=== PATIENT | female | born 1945 | race Caucasian/White ===

== ENCOUNTER 2017-07-26 10:20 | Outpatient (CLI) | payer MEDICARE, SELFPAY | END 2017-07-26 10:55 | disposition home or self-care (01) | PROVIDERS: Visit Provider Allergy & Immunology | DX: J45.909 Unspecified asthma, uncomplicated (principal) | CPT/HCPCS: 96372; J2357 ==

== ENCOUNTER 2017-08-09 09:50 | Outpatient (CLI) | payer MEDICARE, SELFPAY ==
[2017-08-09 10:27] VITALS: BMI 22.1
[2017-08-09 10:33] VITALS: BP 111/71; PULSE 65; RESP 18; TEMP 36.3; O2SAT 97
== END 2017-08-09 10:45 | disposition home or self-care (01) ==
LOC: INF 12:04
PROVIDERS: Family Provider Family Medicine; PCP Family Medicine; Visit Provider Allergy & Immunology
DX: J45.909 Unspecified asthma, uncomplicated (principal)
CPT/HCPCS: 96372; J2357

== ENCOUNTER 2017-08-23 09:50 | Outpatient (CLI) | payer MEDICARE, SELFPAY ==
[2017-08-23 10:37] VITALS: BP 108/62; PULSE 63; RESP 20; TEMP 36.5; O2SAT 94
== END 2017-08-23 10:46 | disposition home or self-care (01) ==
LOC: INF 10:25
PROVIDERS: Family Provider Family Medicine; PCP Family Medicine; Visit Provider Allergy & Immunology
DX: J45.909 Unspecified asthma, uncomplicated (principal)
CPT/HCPCS: 96372; J2357

== ENCOUNTER 2017-09-06 11:20 | Outpatient (CLI) | payer MEDICARE, SELFPAY ==
[2017-09-06 11:40] VITALS: BP 140/73; PULSE 67; RESP 18; TEMP 36.6; O2SAT 95
== END 2017-09-06 11:55 | disposition home or self-care (01) ==
LOC: INF 11:39
PROVIDERS: Family Provider Family Medicine; PCP Family Medicine; Visit Provider Allergy & Immunology
DX: J45.909 Unspecified asthma, uncomplicated (principal)
CPT/HCPCS: 96372; J2357

== ENCOUNTER 2017-09-20 09:56 | Outpatient (CLI) | payer MEDICARE, SELFPAY ==
[2017-09-20 10:10] VITALS: BMI 22.3
[2017-09-20 10:20] VITALS: BP 129/65; PULSE 58; RESP 18; TEMP 36.7; O2SAT 93
== END 2017-09-20 10:20 | disposition home or self-care (01) ==
LOC: INF 09:56
PROVIDERS: Family Provider Family Medicine; PCP Family Medicine; Visit Provider Allergy & Immunology
DX: J45.909 Unspecified asthma, uncomplicated (principal)
CPT/HCPCS: 96372; J2357

== ENCOUNTER 2017-10-04 10:18 | Outpatient (CLI) | payer MEDICARE, SELFPAY ==
[2017-10-04 10:33] VITALS: BP 129/62; PULSE 62; RESP 18; TEMP 36.4; O2SAT 96
== END 2017-10-04 10:39 | disposition home or self-care (01) ==
LOC: INF 10:19
PROVIDERS: Family Provider Family Medicine; PCP Family Medicine; Visit Provider Allergy & Immunology
DX: J45.909 Unspecified asthma, uncomplicated (principal)
CPT/HCPCS: 96372; J2357

== ENCOUNTER 2017-10-18 09:54 | Outpatient (CLI) | payer MEDICARE, SELFPAY ==
[2017-10-18 10:20] VITALS: BP 135/60; PULSE 69; RESP 18; TEMP 36.5; O2SAT 95
== END 2017-10-18 10:33 | disposition home or self-care (01) ==
LOC: INF 09:54
PROVIDERS: Family Provider Family Medicine; PCP Family Medicine; Visit Provider Allergy & Immunology
DX: J45.909 Unspecified asthma, uncomplicated (principal)
CPT/HCPCS: 96372; J2357

== ENCOUNTER 2017-11-01 10:00 | Outpatient (CLI) | payer MEDICARE, SELFPAY ==
[2017-11-01 10:25] VITALS: BP 112/58; PULSE 84; RESP 18
== END 2017-11-01 10:45 | disposition home or self-care (01) ==
LOC: INF 10:08
PROVIDERS: Family Provider Family Medicine; PCP Family Medicine; Visit Provider Allergy & Immunology
DX: J45.909 Unspecified asthma, uncomplicated (principal)
CPT/HCPCS: 96372; J2357

== ENCOUNTER 2017-11-15 10:00 | Outpatient (CLI) | payer MEDICARE, SELFPAY ==
[2017-11-15 10:25] VITALS: BP 112/60; PULSE 65; RESP 18; TEMP 36.6; O2SAT 94
== END 2017-11-15 10:50 | disposition home or self-care (01) ==
LOC: INF 10:05
PROVIDERS: Family Provider Family Medicine; PCP Family Medicine; Visit Provider Internal Medicine
DX: J45.909 Unspecified asthma, uncomplicated (principal)
CPT/HCPCS: 96372; J2357

== ENCOUNTER 2017-11-29 10:02 | Outpatient (CLI) | payer MEDICARE, SELFPAY ==
[2017-11-29 10:30] VITALS: BP 118/63; PULSE 63; RESP 18; O2SAT 94
== END 2017-11-29 10:45 | disposition home or self-care (01) ==
LOC: INF 10:02
PROVIDERS: Family Provider Family Medicine; PCP Family Medicine; Visit Provider Allergy & Immunology
DX: J45.909 Unspecified asthma, uncomplicated (principal)
CPT/HCPCS: 96372; J2357

== ENCOUNTER 2017-12-13 10:00 | Outpatient (CLI) | payer MEDICARE, SELFPAY ==
[2017-12-13 10:35] VITALS: BP 124/78; PULSE 67; RESP 18; TEMP 36.8
== END 2017-12-13 10:35 | disposition home or self-care (01) ==
LOC: INF 10:07
PROVIDERS: Family Provider Family Medicine; PCP Family Medicine; Visit Provider Allergy & Immunology
DX: J45.909 Unspecified asthma, uncomplicated (principal)
CPT/HCPCS: 96372; J2357

== ENCOUNTER 2017-12-27 10:00 | Outpatient (CLI) | payer MEDICARE, SELFPAY ==
[2017-12-27 10:35] VITALS: BP 116/68; PULSE 68; RESP 18; TEMP 36.6; O2SAT 95
== END 2017-12-27 10:50 | disposition home or self-care (01) ==
LOC: INF 10:44
PROVIDERS: Family Provider Family Medicine; PCP Family Medicine; Visit Provider Allergy & Immunology
DX: J45.909 Unspecified asthma, uncomplicated (principal)
CPT/HCPCS: 96372; J2357

== ENCOUNTER 2018-01-10 10:10 | Outpatient (CLI) | payer MEDICARE, SELFPAY ==
[2018-01-10 10:35] VITALS: BP 136/81; PULSE 62; RESP 18; TEMP 36.6; O2SAT 97
== END 2018-01-10 10:50 | disposition home or self-care (01) ==
LOC: INF 10:34
PROVIDERS: Family Provider Family Medicine; PCP Family Medicine; Visit Provider Allergy & Immunology
DX: J45.909 Unspecified asthma, uncomplicated (principal)
CPT/HCPCS: 96372; J2357

== ENCOUNTER 2018-01-24 10:04 | Outpatient (CLI) | payer MEDICARE, SELFPAY ==
[2018-01-24 10:14] VITALS: BP 122/63; PULSE 65; RESP 18; TEMP 36.8; O2SAT 97
== END 2018-01-24 10:28 | disposition home or self-care (01) ==
LOC: INF 10:04
PROVIDERS: Family Provider Family Medicine; PCP Family Medicine; Visit Provider Allergy & Immunology
DX: J45.909 Unspecified asthma, uncomplicated (principal)
CPT/HCPCS: 96372; J2357

== ENCOUNTER 2018-02-07 10:00 | Outpatient (CLI) | payer MEDICARE, SELFPAY ==
[2018-02-07 10:17] VITALS: BP 109/64; PULSE 69; RESP 18; TEMP 36.6; O2SAT 96
== END 2018-02-07 10:30 | disposition home or self-care (01) ==
LOC: INF 10:08
PROVIDERS: Family Provider Family Medicine; PCP Family Medicine; Visit Provider Allergy & Immunology
DX: J45.909 Unspecified asthma, uncomplicated (principal)
CPT/HCPCS: 96372; J2357

== ENCOUNTER 2018-02-21 09:59 | Outpatient (CLI) | payer MEDICARE, SELFPAY ==
[2018-02-21 10:14] VITALS: BP 124/64; PULSE 62; RESP 18; TEMP 36.4; O2SAT 93
== END 2018-02-21 10:32 | disposition home or self-care (01) ==
LOC: INF 09:59
PROVIDERS: Family Provider Family Medicine; PCP Family Medicine; Visit Provider Allergy & Immunology
DX: J45.909 Unspecified asthma, uncomplicated (principal)
CPT/HCPCS: 96372; J2357

== ENCOUNTER 2018-03-07 09:50 | Outpatient (CLI) | payer MEDICARE, SELFPAY ==
[2018-03-07 11:05] VITALS: BP 114/62; PULSE 65; RESP 18; TEMP 36.4; O2SAT 94
== END 2018-03-07 11:30 | disposition home or self-care (01) ==
LOC: INF 09:50
PROVIDERS: Family Provider Family Medicine; PCP Family Medicine; Visit Provider Allergy & Immunology
DX: J45.909 Unspecified asthma, uncomplicated (principal)
CPT/HCPCS: 96372; J2357

== ENCOUNTER 2018-03-21 10:13 | Outpatient (CLI) | payer MEDICARE, SELFPAY ==
[2018-03-21 10:50] VITALS: BP 115/65; PULSE 66; RESP 18; TEMP 36.8; O2SAT 98
== END 2018-03-21 11:00 | disposition home or self-care (01) ==
LOC: INF 10:13
PROVIDERS: Family Provider Family Medicine; PCP Family Medicine; Visit Provider Allergy & Immunology
DX: J45.909 Unspecified asthma, uncomplicated (principal)
CPT/HCPCS: 96372; J2357

== ENCOUNTER 2018-04-04 09:50 | Outpatient (CLI) | payer MEDICARE, SELFPAY ==
[2018-04-04 10:16] VITALS: BP 118/64; PULSE 60; RESP 18; TEMP 36.8; O2SAT 95
== END 2018-04-04 10:41 | disposition home or self-care (01) ==
LOC: INF 09:53
PROVIDERS: Family Provider Family Medicine; PCP Family Medicine; Visit Provider Allergy & Immunology
DX: J45.909 Unspecified asthma, uncomplicated (principal)
CPT/HCPCS: 96372; J2357

== ENCOUNTER 2018-04-18 10:00 | Outpatient (CLI) | payer MEDICARE, SELFPAY ==
[2018-04-18 10:28] VITALS: BP 128/76; PULSE 60; RESP 18; TEMP 36.3; O2SAT 96
--- NOTE | 2018-04-18 10:36 | PC.NURSE ---
04/18/18 1028 xolair 300mg SQ given, 150mg L arm, 150mg R arm. Pt veronique very well.
[2018-04-18 10:43] VITALS: BP 125/69; PULSE 64; RESP 18; TEMP 36.4; O2SAT 97
== END 2018-04-18 10:45 | disposition home or self-care (01) ==
LOC: INF 10:00
PROVIDERS: Family Provider Family Medicine; PCP Family Medicine; Visit Provider Allergy & Immunology
DX: J45.909 Unspecified asthma, uncomplicated (principal)
CPT/HCPCS: 96372; J2357

== ENCOUNTER 2018-05-02 09:15 | Outpatient (CLI) | payer MEDICARE, SELFPAY ==
[2018-05-02 09:52] VITALS: BP 119/61; PULSE 60; RESP 18; TEMP 36.9; O2SAT 94
== END 2018-05-02 09:52 | disposition home or self-care (01) ==
LOC: INF 09:37
PROVIDERS: Family Provider Family Medicine; PCP Family Medicine; Visit Provider Allergy & Immunology
DX: J45.909 Unspecified asthma, uncomplicated (principal)
CPT/HCPCS: 96372; J2357

== ENCOUNTER 2018-05-16 10:06 | Outpatient (CLI) | payer MEDICARE, SELFPAY ==
[2018-05-16 10:10] VITALS: BP 122/67; PULSE 84; RESP 18; TEMP 36.6; O2SAT 97
[2018-05-29 14:45] VITALS: BMI 22.3
== END 2018-05-16 10:35 | disposition home or self-care (01) ==
LOC: INF 10:06
PROVIDERS: Family Provider Family Medicine; PCP Family Medicine; Visit Provider Allergy & Immunology
DX: J45.909 Unspecified asthma, uncomplicated (principal)
CPT/HCPCS: 96372; J2357

== ENCOUNTER 2018-05-30 10:05 | Outpatient (CLI) | payer MEDICARE, SELFPAY ==
[2018-05-30 10:45] VITALS: BP 125/63; PULSE 62; RESP 18; O2SAT 95
== END 2018-05-30 11:05 | disposition home or self-care (01) ==
LOC: INF 10:11
PROVIDERS: Visit Provider Allergy & Immunology
DX: J45.909 Unspecified asthma, uncomplicated (principal)
CPT/HCPCS: 96372; J2357

== ENCOUNTER 2018-06-13 10:18 | Outpatient (CLI) | payer MEDICARE, SELFPAY ==
[2018-06-13 10:31] VITALS: BP 129/68; PULSE 69; RESP 18; TEMP 36.7; O2SAT 91
== END 2018-06-13 10:31 | disposition home or self-care (01) ==
LOC: INF 10:18
PROVIDERS: Visit Provider Allergy & Immunology
DX: J45.909 Unspecified asthma, uncomplicated (principal)
CPT/HCPCS: 96372; J2357

== ENCOUNTER 2018-06-27 10:15 | Outpatient (CLI) | payer MEDICARE, SELFPAY ==
[2018-06-27 10:25] VITALS: BP 130/71; PULSE 62; RESP 18; TEMP 36.6; O2SAT 94
--- NOTE | 2018-06-27 11:54 | PC.NURSE ---
06/27/18 1025 Xolair 300mg SQ given as ordered, 150mg L arm, 150mg R arm. Pt veronique well with no problems noted
== END 2018-06-27 10:35 | disposition home or self-care (01) ==
LOC: INF 10:15
PROVIDERS: Visit Provider Allergy & Immunology
DX: J45.909 Unspecified asthma, uncomplicated (principal)
CPT/HCPCS: 96372; J2357

== ENCOUNTER 2018-07-11 10:15 | Outpatient (CLI) | payer MEDICARE, SELFPAY ==
[2018-07-11 10:40] VITALS: BP 119/63; PULSE 63; RESP 18; O2SAT 92
== END 2018-07-11 10:55 | disposition home or self-care (01) ==
LOC: INF 10:21
PROVIDERS: Visit Provider Allergy & Immunology
DX: J45.909 Unspecified asthma, uncomplicated (principal)
CPT/HCPCS: 96372; J2357

== ENCOUNTER 2018-07-25 09:40 | Outpatient (CLI) | payer MEDICARE, SELFPAY ==
[2018-07-25 10:05] VITALS: BP 126/73; PULSE 62; RESP 18; O2SAT 93
== END 2018-07-25 10:25 | disposition home or self-care (01) ==
LOC: INF 09:46
PROVIDERS: Visit Provider Allergy & Immunology
DX: J45.909 Unspecified asthma, uncomplicated (principal)
CPT/HCPCS: 96372; J2357

== ENCOUNTER 2018-08-08 09:47 | Outpatient (CLI) | payer MEDICARE, SELFPAY ==
[2018-08-08 10:12] VITALS: BP 120/66; PULSE 60; RESP 20; TEMP 36.7; O2SAT 97
== END 2018-08-08 10:30 | disposition home or self-care (01) ==
LOC: INF 09:47
PROVIDERS: Visit Provider Allergy & Immunology
DX: J45.909 Unspecified asthma, uncomplicated (principal)
CPT/HCPCS: 96372; J2357

== ENCOUNTER 2018-08-22 10:13 | Outpatient (CLI) | payer MEDICARE, SELFPAY ==
[2018-08-22 10:29] VITALS: BP 113/71; PULSE 61; RESP 18; TEMP 36.4; O2SAT 98
== END 2018-08-22 10:46 | disposition home or self-care (01) ==
LOC: INF 10:13
PROVIDERS: Visit Provider Allergy & Immunology
DX: J45.909 Unspecified asthma, uncomplicated (principal)
CPT/HCPCS: 96372; J2357

== ENCOUNTER 2018-09-04 10:32 | Outpatient (CLI) | payer MEDICARE, SELFPAY ==
[2018-09-04 10:46] VITALS: BP 119/60; PULSE 68; RESP 20; TEMP 36.6; O2SAT 98
== END 2018-09-04 10:55 | disposition home or self-care (01) ==
LOC: INF 10:32
PROVIDERS: Visit Provider Allergy & Immunology
DX: J45.909 Unspecified asthma, uncomplicated (principal)
CPT/HCPCS: 96372; J2357

== ENCOUNTER 2018-09-19 09:45 | Outpatient (CLI) | payer MEDICARE, SELFPAY ==
[2018-09-19 10:20] VITALS: BP 136/70; PULSE 72; RESP 18; TEMP 36.6; O2SAT 94
== END 2018-09-19 10:24 | disposition home or self-care (01) ==
LOC: INF 09:45
PROVIDERS: Visit Provider Allergy & Immunology
DX: J45.909 Unspecified asthma, uncomplicated (principal)
CPT/HCPCS: 96372; J2357

== ENCOUNTER 2018-10-02 10:10 | Outpatient (CLI) | payer MEDICARE, SELFPAY ==
[2018-10-02 10:32] VITALS: BP 122/70; PULSE 68; RESP 18; TEMP 36.3; O2SAT 96
== END 2018-10-02 10:50 | disposition home or self-care (01) ==
LOC: INF 10:10
PROVIDERS: Visit Provider Allergy & Immunology
DX: J45.909 Unspecified asthma, uncomplicated (principal)
CPT/HCPCS: 96372; J2357

== ENCOUNTER 2018-10-17 09:52 | Outpatient (CLI) | payer MEDICARE, SELFPAY ==
[2018-10-17 09:45] VITALS: BP 125/62; PULSE 57; RESP 18; TEMP 36.3; O2SAT 92
[2018-10-17 10:10] VITALS: BP 125/62; PULSE 57; RESP 18; TEMP 36.3; O2SAT 92
== END 2018-10-17 10:10 | disposition home or self-care (01) ==
LOC: INF 09:52
PROVIDERS: Visit Provider Allergy & Immunology
DX: J45.909 Unspecified asthma, uncomplicated (principal)
CPT/HCPCS: 96372; J2357

== ENCOUNTER 2018-10-30 10:07 | Outpatient (CLI) | payer MEDICARE, SELFPAY ==
[2018-10-30 10:26] VITALS: BP 137/72; PULSE 61; RESP 18; TEMP 36.6; O2SAT 95
== END 2018-10-30 10:35 | disposition home or self-care (01) ==
LOC: INF 10:07
PROVIDERS: Visit Provider Allergy & Immunology
DX: J45.909 Unspecified asthma, uncomplicated (principal)
CPT/HCPCS: 96372; J2357

== ENCOUNTER 2018-11-14 09:36 | Outpatient (CLI) | payer MEDICARE, SELFPAY ==
[2018-11-14 10:01] VITALS: BP 131/84; PULSE 65; RESP 18; TEMP 36.6; O2SAT 96
== END 2018-11-14 10:04 | disposition home or self-care (01) ==
LOC: INF 09:37
PROVIDERS: Visit Provider Allergy & Immunology
DX: J45.909 Unspecified asthma, uncomplicated (principal)
CPT/HCPCS: 96372; J2357

== ENCOUNTER 2018-11-27 09:50 | Outpatient (CLI) | payer MEDICARE, SELFPAY ==
[2018-11-27 10:13] VITALS: BP 129/68; PULSE 74; RESP 18; O2SAT 100
== END 2018-11-27 10:25 | disposition home or self-care (01) ==
LOC: INF 09:55
PROVIDERS: Visit Provider Allergy & Immunology
DX: J45.909 Unspecified asthma, uncomplicated (principal)
CPT/HCPCS: 96372; J2357

== ENCOUNTER 2018-12-11 10:00 | Outpatient (CLI) | payer MEDICARE, SELFPAY ==
[2018-12-11 10:20] VITALS: BP 133/68; PULSE 70; RESP 18; O2SAT 93
== END 2018-12-11 10:40 | disposition home or self-care (01) ==
LOC: INF 10:06
PROVIDERS: Visit Provider Allergy & Immunology
DX: J45.909 Unspecified asthma, uncomplicated (principal)
CPT/HCPCS: 96372; J2357

== ENCOUNTER 2018-12-26 09:59 | Outpatient (CLI) | payer MEDICARE, SELFPAY ==
[2018-12-26 10:18] VITALS: BP 113/56; PULSE 63; RESP 18; TEMP 36.6; O2SAT 95
== END 2018-12-26 10:40 | disposition home or self-care (01) ==
LOC: INF 09:59
PROVIDERS: Visit Provider Allergy & Immunology
DX: J45.909 Unspecified asthma, uncomplicated (principal)
CPT/HCPCS: 96372; J2357

== ENCOUNTER 2019-01-08 09:55 | Outpatient (CLI) | payer MEDICARE, SELFPAY ==
[2019-01-08 10:15] VITALS: BP 139/69; PULSE 66; RESP 18
== END 2019-01-08 10:30 | disposition home or self-care (01) ==
LOC: INF 09:55
PROVIDERS: Visit Provider Allergy & Immunology
DX: J45.909 Unspecified asthma, uncomplicated (principal)
CPT/HCPCS: 96372; J2357

== ENCOUNTER 2019-01-22 09:41 | Outpatient (CLI) | payer MEDICARE, SELFPAY ==
[2019-01-22 09:59] VITALS: BP 128/81; PULSE 64; RESP 18; TEMP 36.6; O2SAT 95
== END 2019-01-22 10:20 | disposition home or self-care (01) ==
LOC: INF 09:41
PROVIDERS: Visit Provider Allergy & Immunology
DX: J45.909 Unspecified asthma, uncomplicated (principal)
CPT/HCPCS: 96372; J2357

== ENCOUNTER 2019-02-06 09:50 | Outpatient (CLI) | payer MEDICARE, SELFPAY ==
[2019-02-06 10:30] VITALS: BP 136/68; PULSE 64; RESP 16; TEMP 37; O2SAT 92
== END 2019-02-06 10:38 | disposition home or self-care (01) ==
LOC: INF 09:50
PROVIDERS: Visit Provider Allergy & Immunology
DX: J45.909 Unspecified asthma, uncomplicated (principal)
CPT/HCPCS: 96372; J2357

== ENCOUNTER 2019-02-19 09:55 | Outpatient (CLI) | payer MEDICARE, SELFPAY ==
[2019-02-19 10:15] VITALS: BP 135/76; PULSE 61; RESP 18; O2SAT 95
== END 2019-02-19 10:30 | disposition home or self-care (01) ==
LOC: INF 10:02
PROVIDERS: Visit Provider Allergy & Immunology
DX: J45.909 Unspecified asthma, uncomplicated (principal)
CPT/HCPCS: 96372; J2357

== ENCOUNTER → 2019-03-04 08:01 | Outpatient (CLI) | payer MEDICARE, SELFPAY ==
--- NOTE | 2019-03-04 08:05 | MM_ITS ---
MM Dig screening mamm BI w/CAD ORDERING PHYSICIAN : Maty Gross APRN PATIENT AGE: 73 years GENDER: Female COMPARISON: May 2016, April 2014 bilateral mammogram studies. Left mammogram January 2015, INDICATION: . .Routine screening mammogram. 73-year-old. No hormones. No new complaints. Previous bilateral breast reduction. Family history..Patient's daughter with breast cancer. TECHNIQUE: Standard CC and MLO images were obtained. R2 CAD reviewed. FINDINGS: Lower density breast with moderate diffuse fatty replacement. Minimal residual fibroglandular elements.. . No new areas of significant concern.. No dominant mass nor suspicious clustered microcalcifications. Period A few scattered benign punctate calcifications are actually less evident bilaterally. . Minimal nodularity in the left retroareolar region has remained stable.. Other appears to be a percutaneous biopsy clip at the medial right retroareolar region. No additional findings here Bilateral follow-up in one year adequate IMPRESSION: ...... Stable bilateral mammogram. No new areas of significant concern. Bilateral follow-up in one year recommended. BI-RADS Category: 2 Benign Finding(s) RECOMMENDED FOLLOW-UP: 1YR 1 YEAR FOLLOW-UP (A letter has been sent to the patient regarding results of the study.)
--- NOTE | 2019-03-04 08:05 | XR_ITS ---
XR DEXA axial skeleton HISTORY: ITS.REASON: OSTEOPENIA ORDERING PHYSICIAN: Maty Gross APRN PATIENT AGE: 73 years COMPARISON: None FINDINGS: The BMD measured at the AP spine L1-L4 is 0.830 g/cm squared with a T score of -2.9. This is considered Osteoporotic according to the World Health Organization criteria. Fracture risk is High. Treatment is advised. IMPRESSION: Osteoporosis with high fracture risk. Treatment is advised. Suggest follow-up exam February 2020
== END ==
PROVIDERS: PCP Family Medicine; Visit Provider Nurse Practitioner Family
DX: Z12.31 Encounter for screening mammogram for malignant neoplasm of breast (principal); M85.89 Other specified disorders of bone density and structure, multiple sites
CPT/HCPCS: 77067; 77080

== ENCOUNTER 2019-03-04 09:21 | Outpatient (CLI) | payer MEDICARE, SELFPAY ==
[2019-03-04 09:40] VITALS: BP 131/70; PULSE 60; RESP 18
== END 2019-03-04 09:45 | disposition home or self-care (01) ==
LOC: INF 09:21
PROVIDERS: Visit Provider Allergy & Immunology
DX: J45.909 Unspecified asthma, uncomplicated (principal); Z12.31 Encounter for screening mammogram for malignant neoplasm of breast; M81.0 Age-related osteoporosis without current pathological fracture
CPT/HCPCS: 77067; 77080; 96372; J2357

== ENCOUNTER 2019-03-19 09:53 | Outpatient (CLI) | payer MEDICARE, SELFPAY ==
[2019-03-19 10:15] VITALS: BP 131/68; PULSE 71; RESP 18; O2SAT 94
== END 2019-03-19 10:18 | disposition home or self-care (01) ==
LOC: INF 09:53
PROVIDERS: PCP Family Medicine; Visit Provider Allergy & Immunology
DX: J45.909 Unspecified asthma, uncomplicated (principal)
CPT/HCPCS: 96372; J2357

== ENCOUNTER 2019-04-02 09:50 | Outpatient (CLI) | payer MEDICARE, SELFPAY ==
[2019-04-02 12:13] VITALS: BP 109/65; PULSE 68; RESP 18; O2SAT 95
== END 2019-04-02 10:30 | disposition home or self-care (01) ==
LOC: INF 09:55
PROVIDERS: Visit Provider Allergy & Immunology
DX: J45.909 Unspecified asthma, uncomplicated (principal)
CPT/HCPCS: 96372; J2357

== ENCOUNTER 2019-04-17 09:41 | Outpatient (CLI) | payer MEDICARE, SELFPAY ==
[2019-04-17 10:09] VITALS: BP 111/53; PULSE 70; RESP 20; TEMP 36.6; O2SAT 96
== END 2019-04-17 10:25 | disposition home or self-care (01) ==
LOC: INF 09:41
PROVIDERS: Visit Provider Allergy & Immunology
DX: J45.909 Unspecified asthma, uncomplicated (principal)
CPT/HCPCS: 96372; J2357

== ENCOUNTER 2019-05-01 09:52 | Outpatient (CLI) | payer MEDICARE, SELFPAY ==
[2019-05-01 10:15] VITALS: BP 112/64; PULSE 67; RESP 18
== END 2019-05-01 10:30 | disposition home or self-care (01) ==
LOC: INF 10:04
PROVIDERS: Visit Provider Allergy & Immunology
DX: J45.909 Unspecified asthma, uncomplicated (principal)
CPT/HCPCS: 96372; J2357

== ENCOUNTER 2019-05-15 10:00 | Outpatient (CLI) | payer MEDICARE, SELFPAY ==
[2019-05-15 10:32] VITALS: BP 129/64; PULSE 70; RESP 20; TEMP 36.6; O2SAT 97
== END 2019-05-15 10:50 | disposition home or self-care (01) ==
LOC: INF 10:11
PROVIDERS: Visit Provider Allergy & Immunology
DX: J45.909 Unspecified asthma, uncomplicated (principal)
CPT/HCPCS: 96372; J2357

== ENCOUNTER 2019-05-29 10:04 | Outpatient (CLI) | payer MEDICARE, SELFPAY ==
[2019-05-29 10:20] VITALS: BP 111/62; PULSE 67; RESP 18; O2SAT 94
== END 2019-05-29 10:35 | disposition home or self-care (01) ==
LOC: INF 10:06
PROVIDERS: Visit Provider Allergy & Immunology
DX: J45.909 Unspecified asthma, uncomplicated (principal)
CPT/HCPCS: 96372; J2357

== ENCOUNTER 2019-06-12 10:00 | Outpatient (CLI) | payer MEDICARE, SELFPAY ==
[2019-06-12 10:00] VITALS: BP 118/56; PULSE 65; RESP 20; TEMP 36.9; O2SAT 95
== END 2019-06-12 10:30 | disposition home or self-care (01) ==
LOC: INF 10:00
PROVIDERS: Visit Provider Nurse Practitioner
DX: J45.909 Unspecified asthma, uncomplicated (principal)
CPT/HCPCS: 96372; J2357

== ENCOUNTER 2019-06-25 10:13 | Outpatient (CLI) | payer MEDICARE, SELFPAY ==
[2019-06-25 10:22] VITALS: BP 122/64; PULSE 65; RESP 18; TEMP 37; O2SAT 96
== END 2019-06-25 10:45 | disposition home or self-care (01) ==
LOC: INF 10:13
PROVIDERS: Visit Provider Nurse Practitioner
DX: M81.0 Age-related osteoporosis without current pathological fracture (principal)
CPT/HCPCS: 96372; J2357

== ENCOUNTER 2019-07-10 10:10 | Outpatient (CLI) | payer MEDICARE, SELFPAY ==
[2019-07-10 10:40] VITALS: BP 134/66; PULSE 62; RESP 16; O2SAT 96
== END 2019-07-10 10:55 | disposition home or self-care (01) ==
LOC: INF 10:29
PROVIDERS: Visit Provider Nurse Practitioner
DX: J45.909 Unspecified asthma, uncomplicated (principal)
CPT/HCPCS: 96372; J2357

== ENCOUNTER 2019-07-25 09:52 | Outpatient (CLI) | payer MEDICARE, SELFPAY ==
[2019-07-25 10:13] VITALS: BP 152/61; PULSE 67; RESP 18
== END 2019-07-25 10:15 | disposition home or self-care (01) ==
LOC: INF 09:52
PROVIDERS: Visit Provider Nurse Practitioner
DX: J45.909 Unspecified asthma, uncomplicated (principal)
CPT/HCPCS: 96372; J2357

== ENCOUNTER 2019-07-26 21:25 | Inpatient (IN) ==
--- NOTE | 2019-07-26 21:33 | Emergency Department Note ---
ED Disposition Clinical Impression: Upper gastrointestinal bleed, Pleural effusion, left, Hemorrhagic shock Hypothermia Qualifiers: Encounter type: initial encounter Qualified Code(s): T68.XXXA - Hypothermia, initial encounter Disposition: Admitted As Inpatient Condition on Discharge: Critical - Critical Care Critical Care Time: Yes Attestation: On , the high probability of a clinically significant, sudden or life threatening deterioration of the following system(s) required my full and direct attention, intervention and personal management. The time I documented below is in addition to time spent performing reported procedures but includes the following listed in this critical care notation. Total Critical Care Time: 45 Vital system(s) involved:: Shock (Hemorrhage) My critical care processes included: Assessment & monitoring of V/S, Initial and Re-exams, Data Review/Interpretation, Coordinating Care, Medication Orders and management, Documentation Medical Decision Making - Alex Inquiry Pt receiving controlled substance: No Vital Signs: 07/26/19 21:38 07/26/19 21:43 07/26/19 21:57 Temperature 95.0 F L Temperature Source Rectal Pulse Rate [Right] 94 H 86 87 Respiratory Rate 18 18 16 Blood Pressure [Right Arm] 66/33 L 81/62 L 88/44 L Blood Pressure Mean [Right Arm] 44 68 58 Blood Pressure Source [Right Arm] Manual Cuff/ Auscultation Blood Pressure Position [Right Arm] Supine 02 Sat by Pulse Oximetry 76 L 88 L 88 L Oxygen Delivery Method Room Air Nasal Cannula Nasal Cannula Oxygen Flow Rate (LPM) 2 2 07/26/19 22:18 07/26/19 23:22 Temperature Temperature Source Pulse Rate [Right] 85 92 H Respiratory Rate 16 Blood Pressure [Right Arm] 83/44 L 73/52 L Blood Pressure Mean [Right Arm] 57 59 Blood Pressure Source [Right Arm] Automatic Cuff Blood Pressure Position [Right Arm] Sitting 02 Sat by Pulse Oximetry 100 100 Oxygen Delivery Method Nasal Cannula Non-Rebreather Oxygen Flow Rate (LPM) 2 10 - Lab Data Lab Results 07/26/19 21:30: WBC 15.0 H, RBC 2.70 L, Hgb 7.7 L*, Hct 26.0 L, MCV 96.3, MCH 28.6, MCHC 29.7 L, RDW 15.3, Plt Count 337, MPV 8.4, Neut % (Auto) 81.4 H, Lymph % (Auto) 12.0, [place] % (Auto) 6.4, Eos % (Auto) 0.1, Baso % (Auto) 0.2, Neut # (Auto) 12.2 H, Lymph # (Auto) 1.8, [place] # (Auto) 1.0, Eos # (Auto) 0.0, Baso # (Auto) 0.0, Total Counted 100, Neutrophils % (Manual) 85 H, Lymphocytes % (Manual) 15, Platelet Estimate Normal, Hypochromasia 1+ 07/26/19 21:30: PT 11.1, INR 1.07, APTT 21.1 L 07/26/19 21:30: Sodium 147 H, Potassium 4.2, Chloride 114 H, Carbon Dioxide 20 L , Anion Gap 17.2 H, BUN 74 H, Creatinine 1.16 H, Estimated Creat Clear 39, Estimated GFR 46 L, Est GFR ( Amer) 55 L, Glucose 138 H, Calcium 7.8 L, Total Bilirubin 0.2, AST 12 L, ALT 14, Alkaline Phosphatase 51, Troponin I 0.38 H, Total Protein 5.0 L, Albumin 2.0 L, Globulin 3.0, Albumin/Globulin Ratio 0.7 L 07/26/19 21:30: Stool Occult Blood Positive A 07/26/19 21:50: Crossmatch (AHG) See Detail 07/26/19 23:00: Urine Color Yellow, Urine Appearance Clear, Urine pH 5.0, Ur Specific [place] 1.020, Urine Protein Negative, Urine Glucose (UA) Negative, Urine Ketones Negative, Urine Blood Negative, Urine Nitrate Negative, Urine Bilirubin Negative, Urine Urobilinogen 0.2, Ur Leukocyte Esterase Negative Result diagrams: 07/26/19 21:30 07/26/19 21:30 Orders (Tests/Meds): ED MEDICATIONS Generic Name Dose Route Start Last Admin Trade Name Freq PRN Reason Stop Dose Admin Pantoprazole Sodium 80 mg/ 100 mls @ 10 mls/hr 07/26/19 22:32 07/26/19 21:51 Sodium Chloride IV 07/29/19 22:31 10 mls/hr .Q10H KAELA Administration Sodium Chloride 250 mls @ 25 mls/hr 07/26/19 22:15 Sod Chlor 0.9% 250ml Bag IV 07/27/19 22:14 .Q10H KAELA Discontinued Medications Generic Name Dose Route Start Last Admin Trade Name Freq PRN Reason Stop Dose Admin Pantoprazole Sodium 80 mg/ 100 mls @ 100 mls/hr 07/26/19 21:31 07/26/19 22:06 Sodium Chloride IV 07/26/19 22:30 100 mls/hr ONCE ONE Administration Sodium Chloride 1,000 ml 07/26/19 21:31 07/26/19 22:08 Sod Chlor 0.9% 1000ml Bag IV 07/26/19 21:32 1,000 ml BOLUS ONE Administration ORDERS Category Date Time Status PRBC [Red Blood Cells] Stat BBK 07/26/19 21:50 Received Type and Screen Stat BBK 07/26/19 21:50 Received XR chest portable Stat Exams 07/26/19 21:31 Taken Troponin I Q3H Lab 07/27/19 00:45 Ordered Troponin I Q3H Lab 07/27/19 03:45 Ordered Urinalysis and Microscopic Stat Lab 07/26/19 23:00 Results - Radiology Data #1 Image(s): Chest Image Reviewed: Yes I reviewed the patient's radiology image large L effusion. post surg changes LLL. hiatal hernia. Effusion is new since last chest x-ray here in 2016. - ECG Data Tracing #1 EKG interpreted by Judson Reza MD: Rhythm: sinus Rate: 88 [place]: normal Ectopy: Premature ventricular and atrial contractions Conduction: normal ST Segment Changes: Nonspecific T Wave Changes: Nonspecific Q Waves: none Baseline artifact and wander present, but I consider the EKG adequate for accurate interpretation. - Physician Consults Physician Consulted: Caesar Molina Time: 23:15 Reason -: Admission Comment/Response: Agrees to admit the patient to the hospital. We discussed the patient's clinical information, including history, exam, laboratory and radiology results and ED course. Per hospital procedure, I will write temporary bridge inpatient orders on the patient. Specific orders requested by the admitting physician: Transfused, recheck labs in the morning. 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 Ice chips and sips. Additional Consult: Zohaib Time: 23:41 Reason -: Surgical Eval/Care General Adult HPI - General Stated complaint: gi bleed Time Seen by Provider: 07/26/19 21:28 - History of Present Illness HPI narrative: Brought in by ambulance. Found down on the floor by family, but patient says she did not have a syncopal episode and did not injure herself. She has had black stool today. States she has no prior history of GI bleed. She has had prior upper and lower endoscopy, but more than a year ago. She is a nondrinker. She states she is on Aggrenox. Denies being on other NSAIDs. Denies abdominal pain or any other pain at this time. Denies vomiting of blood. - Related Data Home Medications Medication Instructions Recorded Confirmed Amlodipine Besylate [Norvasc 5mg 5 mg PO DAILY 08/09/17 07/26/19 tablet] Aspirin/Dipyridamole [Aggrenox 1 each PO BID 08/09/17 07/26/19 25mg-200mg Capsule] Calcium Carbonate 600 mg PO BID 08/09/17 07/26/19 Fluticasone/Salmeterol [Advair 1 inhalation IH BID 08/09/17 07/26/19 100/50mcg diskus] Ipratropium/Albuterol Sulfate 2 puff IH NEEDED PRN 08/09/17 07/26/19 [Combivent Respimat Inh] Lansoprazole [Prevacid] 30 mg PO DAILY 08/09/17 07/26/19 Levothyroxine Sodium 50 mcg PO DAILY 08/09/17 07/26/19 [Levothyroxine 50mcg (0.05mg) Tab] Alendronate Sodium [Fosamax 70mg 70 mg PO WEEKLY 04/17/19 07/26/19 Tablet] Allergies Allergy/AdvReac Type Severity Reaction Status Date / Time No Known Allergies Allergy Verified 11/14/18 09:42 [facility] History - Hepatitis A Screen Attestation statement:: This patient has been screened for Hepatitis A risk factors. I have reviewed the patient's past medical history: Yes Medical History: Reports:: Hypertension Denies:: Cancer, Diabetes Mellitus Type 1, Diabetes Mellitus Type 2, MRSA Other Medical History: Reports: Arthritis, Hypothyroidism, Thyroid Disease Other Surgeries: Yes: Colonoscopy, Hernia Repair Amputation: No Fractures: No - Social History Smoking Status: Never smoker Tobacco Type: cigarettes Alcohol Intake: never Occupational Status: retired Housing: house Household Members: none Family Hx:: Cancer ROS Obtained: Yes All systems reviewed & no additional complaints - Constitutional Constitutional: Denies fever(s) - Cardiovascular Cardiovascular: Denies chest pain - Respiratory Respiratory: No dyspnea - Gastrointestinal Gastrointestingal: Reports: black, tarry stools. Denies: abdominal pain, vomiting blood, vomiting - Neurologic Neurologic: Denies headache(s) Physical Exam - General General appearance: alert Comment: Very pale, hypotensive - Head Head exam: atraumatic, normocephalic - Eye Eye exam: Present: normal appearance, EOMI, other (Conjunctiva pale) - ENT ENT exam: Present: other (Lips pale) - Neck Neck exam: Present: normal inspection, trachea midline - Chest Chest inspection: Present: normal inspection, symmetric chest wall rise - Respiratory Respiratory exam: Present: normal lung sounds bilaterally. Absent: respiratory distress - Cardiovascular Cardiovascular exam: Present: regular rate, normal rhythm, normal heart sounds - Abdominal Exam Abdominal exam: Present: soft, normal bowel sounds. Absent: distention, tendern ess - Extremities Exam Extremities exam: Present: normal inspection - Neurological Exam Neurological exam: Present: alert, oriented X3 - Psychiatric Psychiatric exam: Present: normal affect, normal mood - Skin Skin exam: Present: pallor. Absent: warm (Cool) - Other Other exam information: Melena on posterior thighs, buttocks, perineum
[2019-07-26 21:50] LABS: Basophils % 0.2 % (0.1-2.0); Eosinophils % 0.1 % (0.1-12.0); Lymphocytes # 1.8 K/mm3 (0.7-4.5); Mean Corpuscular HGB Conc 29.7 g/dL (31.8-35.4); Mean Corpuscular Volume 96.3 fl (81-99); Mean Platelet Volume 8.4 fl (7.4-10.4); Monocytes % 6.4 % (1.7-9.3); Neutrophils # 12.2 K/mm3 (1.8-7.8); Neutrophils % 81.4 % (37.0-80.0); Platelet Count 337 K/mm3 (142-424); Red Cell Distribution Width 15.3 % (11.5-17.5)
[2019-07-26 21:56] LABS: Activated Partial Thrombo Time 21.1 seconds (23.6-34.0); Hemoglobin 7.7 g/dL (12.2-16.2); INR 1.07 (0.9-1.1); Prothrombin Time 11.1 seconds (9.4-11.8)
[2019-07-26 22:03] LABS: Albumin/Globulin Ratio 0.7 (1.1-1.8); Anion Gap 17.2 mEq/L (5-15); Bilirubin,Total 0.2 mg/dL (0.2-1.0); Calcium 7.8 mg/dL (8.5-10.1)
[2019-07-26 23:11] LABS: Lymphocytes % 15 % (10-50); Neutrophils % 85 % (42-76); Total Cells Counted 100
[2019-07-26 23:12] LABS: Hypochromasia 1+
[2019-07-26 23:15] LABS: Microscopic, Urine URINE MICROSCOPIC (MICROSCOPIC)
[2019-07-26 23:35] LABS: Appearance,Urine CLEAR (Clear); Bilirubin,Urine Negative (Negative); Blood, Urine Negative (Negative); Color,Urine YELLOW (Yellow); Glucose,Urine (UA) Negative (Negative); Ketones,Urine Negative (Negative); Leukocyte Esterase,Urine Negative (Negative); Protein,Urine Negative (Negative); Urobilinogen,Urine 0.2 EU/dl (0.2)
[2019-07-26 23:55] LABS: Bacteria,Urine 1+ /lpf; Mucus,Urine 1+ /lpf
[2019-07-27 08:06] LABS: Basophils % 0.2 % (0.1-2.0); Eosinophils % 0.1 % (0.1-12.0); Lymphocytes # 1.6 K/mm3 (0.7-4.5); Monocytes # 0.9 K/mm3 (0.1-1.0); Monocytes % 8.7 % (1.7-9.3)
[2019-07-27 08:14] LABS: Hematocrit 31.1 % (37.0-47.0); Hemoglobin 9.8 g/dL (12.2-16.2); Mean Corpuscular HGB Conc 31.4 g/dL (31.8-35.4); Mean Corpuscular Volume 90.3 fl (81-99); Mean Platelet Volume 8.3 fl (7.4-10.4); Neutrophils # 7.5 K/mm3 (1.8-7.8); Platelet Count 227 K/mm3 (142-424); Red Blood Count 3.45 M/mm3 (4.20-5.40); Red Cell Distribution Width 15.7 % (11.5-17.5)
--- NOTE | 2019-07-27 08:25 | Consult Report ---
*Admission Date: 07/27/19 *Reason for consult:: upper GI blood loss / anemia *History of present illness: This is a 73yo female seen in consultation after presenting to the ED later yesterday with increased weakness and melena. HPI forwarded from ED evaluation: HPI narrative: Brought in by ambulance. Found down on the floor by family, but patient says she did not have a syncopal episode and did not injure herself. She has had black stool today. States she has no prior history of GI bleed. She has had prior upper and lower endoscopy, but more than a year ago. She is a nondrinker. She states she is on Aggrenox. Denies being on other NSAIDs. Denies abdominal pain or any other pain at this time. Denies vomiting of blood. Review of Systems - Constitutional Reports fatigue - *Respiratory Denies cough - *Gastrointestinal Denies abdominal pain - *Neurologic Reports confusion, Denies headache(s) [facility] History Medical History: Reports:: Hypertension Denies:: Cancer, Diabetes Mellitus Type 1, Diabetes Mellitus Type 2, MRSA *Have you ever received a pneumonia vaccine?: No *Have you received a flu vaccine this season?: Yes Other Medical History: Reports: Anemia, Arthritis, Hypothyroidism, Thyroid Disease Other Surgeries: Yes: Colonoscopy, Hernia Repair, Other (Breast reduction) Amputation: No Fractures: No - *Social History Educational Level: Completed GED/General Educational Development Smoking Status: Former smoker Tobacco Type: cigarettes Alcohol Intake: never *Occupational Status:: retired Housing: house Household Members: none *Travel in the last 8 weeks: None Family Hx:: Asthma, Cancer, Heart Attack, Hyperlipidemia, Hypertension Meds Home Medications Medication Instructions Recorded Confirmed Type Amlodipine Besylate [Norvasc 5mg 5 mg PO DAILY 08/09/17 07/27/19 History tablet] Aspirin/Dipyridamole [Aggrenox 1 each PO BID 08/09/17 07/27/19 History 25mg-200mg Capsule] Calcium Carbonate 600 mg PO BID 08/09/17 07/27/19 History Fluticasone/Salmeterol [Advair 1 inhalation IH BID 08/09/17 07/27/19 History 100/50mcg diskus] Ipratropium/Albuterol Sulfate 2 puff IH NEEDED PRN 08/09/17 07/26/19 History [Combivent Respimat Inh] Lansoprazole [Prevacid] 30 mg PO DAILY 08/09/17 07/27/19 History Alendronate Sodium [Fosamax 70mg 70 mg PO WEEKLY 04/17/19 07/27/19 History Tablet] Levothyroxine Sodium 75 mcg PO DAILY 07/27/19 07/27/19 History [Levothyroxine 75mcg (0.075mg) Tab] Allergies Allergy/AdvReac Type Severity Reaction Status Date / Time No Known Allergies Allergy Verified 11/14/18 09:42 Exam Vital signs and Labs for Last 24 Hours: Temp Pulse Resp BP Pulse Ox 98.4 F 84 16 125/95 H 99 07/27/19 07:30 07/27/19 07:30 07/27/19 07:30 07/27/19 07:30 07/27/19 07:30 Laboratory Results - last 24 hr 07/26/19 21:30: WBC 15.0 H, RBC 2.70 L, Hgb 7.7 L*, Hct 26.0 L, MCV 96.3, MCH 28.6, MCHC 29.7 L, RDW 15.3, Plt Count 337, MPV 8.4, Neut % (Auto) 81.4 H, Lymph % (Auto) 12.0, [place] % (Auto) 6.4, Eos % (Auto) 0.1, Baso % (Auto) 0.2, Neut # (Auto) 12.2 H, Lymph # (Auto) 1.8, [place] # (Auto) 1.0, Eos # (Auto) 0.0, Baso # (Auto) 0.0, Total Counted 100, Neutrophils % (Manual) 85 H, Lymphocytes % (Manual) 15, Platelet Estimate Normal, Hypochromasia 1+ 07/26/19 21:30: PT 11.1, INR 1.07, APTT 21.1 L 07/26/19 21:30: Sodium 147 H, Potassium 4.2, Chloride 114 H, Carbon Dioxide 20 L , Anion Gap 17.2 H, BUN 74 H, Creatinine 1.16 H, Estimated Creat Clear 39, Estimated GFR 46 L, Est GFR ( Amer) 55 L, Glucose 138 H, Calcium 7.8 L, Total Bilirubin 0.2, AST 12 L, ALT 14, Alkaline Phosphatase 51, Troponin I 0.38 H, Total Protein 5.0 L, Albumin 2.0 L, Globulin 3.0, Albumin/Globulin Ratio 0.7 L 07/26/19 21:30: Stool Occult Blood Positive A 07/26/19 21:50: Blood Type O Positive, Antibody Screen Negative, Crossmatch (AHG) See Detail 07/26/19 23:00: Urine Color Yellow, Urine Appearance Clear, Urine pH 5.0, Ur Specific [place] 1.020, Urine Protein Negative, Urine Glucose (UA) Negative, Urine Ketones Negative, Urine Blood Negative, Urine Nitrate Negative, Urine Bilirubin Negative, Urine Urobilinogen 0.2, Ur Leukocyte Esterase Negative, Urine RBC 3-5, Urine WBC 3-5, Ur Squamous Epith Cells 5-10, Urine Bacteria 1+, Hyaline Casts 5-10, Urine Mucus 1+ 07/27/19 00:35: Troponin I 0.62 H 07/27/19 00:35: Blood Type Confirm O Positive 07/27/19 07:50: WBC 10.0 D, RBC 3.45 L D, Hgb 9.8 L D, Hct 31.1 L, MCV 90.3, MCH 28.3, MCHC 31.4 L, RDW 15.7, Plt Count 227 D, MPV 8.3, Neut % (Auto) 75.0, Lymph % (Auto) 16.0, [place] % (Auto) 8.7, Eos % (Auto) 0.1, Baso % (Auto) 0.2, Neut # (Auto) 7.5, Lymph # (Auto) 1.6, [place] # (Auto) 0.9, Eos # (Auto) 0.0, Baso # (Auto) 0.0 I & O for Last 24 hours: Intake & Output 07/24/19 07/25/19 07/26/19 07/27/19 11:59 11:59 11:59 11:59 Intake Total 3578 / 3578 Balance 3578 / 3578 Weight 149 lb 7.574 oz - Constitutional no acute distress - *Routine Cardiovascular Exam Present: RRR - *Routine Abdominal Exam Present: soft Results - Labs 07/27/19 07:50 07/26/19 21:30 Laboratory Results - last 24 hr 07/26/19 21:30: WBC 15.0 H, RBC 2.70 L, Hgb 7.7 L*, Hct 26.0 L, MCV 96.3, MCH 28.6, MCHC 29.7 L, RDW 15.3, Plt Count 337, MPV 8.4, Neut % (Auto) 81.4 H, Lymph % (Auto) 12.0, [place] % (Auto) 6.4, Eos % (Auto) 0.1, Baso % (Auto) 0.2, Neut # (Auto) 12.2 H, Lymph # (Auto) 1.8, [place] # (Auto) 1.0, Eos # (Auto) 0.0, Baso # (Auto) 0.0, Total Counted 100, Neutrophils % (Manual) 85 H, Lymphocytes % (Manual) 15, Platelet Estimate Normal, Hypochromasia 1+ 07/26/19 21:30: PT 11.1, INR 1.07, APTT 21.1 L 07/26/19 21:30: Sodium 147 H, Potassium 4.2, Chloride 114 H, Carbon Dioxide 20 L , Anion Gap 17.2 H, BUN 74 H, Creatinine 1.16 H, Estimated Creat Clear 39, Estimated GFR 46 L, Est GFR ( Amer) 55 L, Glucose 138 H, Calcium 7.8 L, Total Bilirubin 0.2, AST 12 L, ALT 14, Alkaline Phosphatase 51, Troponin I 0.38 H, Total Protein 5.0 L, Albumin 2.0 L, Globulin 3.0, Albumin/Globulin Ratio 0.7 L 07/26/19 21:30: Stool Occult Blood Positive A 07/26/19 21:50: Blood Type O Positive, Antibody Screen Negative, Crossmatch (AHG) See Detail 07/26/19 23:00: Urine Color Yellow, Urine Appearance Clear, Urine pH 5.0, Ur Specific [place] 1.020, Urine Protein Negative, Urine Glucose (UA) Negative, Urine Ketones Negative, Urine Blood Negative, Urine Nitrate Negative, Urine Bilirubin Negative, Urine Urobilinogen 0.2, Ur Leukocyte Esterase Negative, Urine RBC 3-5, Urine WBC 3-5, Ur Squamous Epith Cells 5-10, Urine Bacteria 1+, Hyaline Casts 5-10, Urine Mucus 1+ 07/27/19 00:35: Troponin I 0.62 H 07/27/19 00:35: Blood Type Confirm O Positive 07/27/19 07:50: WBC 10.0 D, RBC 3.45 L D, Hgb 9.8 L D, Hct 31.1 L, MCV 90.3, MCH 28.3, MCHC 31.4 L, RDW 15.7, Plt Count 227 D, MPV 8.3, Neut % (Auto) 75.0, Lymph % (Auto) 16.0, [place] % (Auto) 8.7, Eos % (Auto) 0.1, Baso % (Auto) 0.2, Neut # (Auto) 7.5, Lymph # (Auto) 1.6, [place] # (Auto) 0.9, Eos # (Auto) 0.0, Baso # (Auto) 0.0 Assessment and Plan (1) Upper gastrointestinal bleed Current visit: Yes Status: Acute Category: Medical Code(s): K92.2 - Gastrointestinal hemorrhage, unspecified continue PPI EGD this AM
--- NOTE | 2019-07-27 08:45 | Progress Note ---
[facility] Anesthesia Checklist - Patient Identification Patient Identification: Arm Band, Verbal (Name & ) - Structural Data Admitted From: Inpatient Planned Operative Procedure/s: egd Consent for Planned Operative Procedure(s) Verified: Yes Verified Documents: History and Physical - NPO Status Verified Time NPO: 00:00 - Chart Verification Results Verified: CBC, BMP - Additional verifications Patient : No Anesthesia Reactions: No Hx Blood Transfusions: No Blood Transfusion Reaction: No Cephalosporin Allergy: No Previous Colonoscopy: Yes - Cardiovascular Assessment Heart Sounds: S1 & S2 Pulse Strength: Baseline Pulse Rhythm: Regular Peripheral Edema: No - Airway Assessment C-Spine Mobility Assessed: Yes TMJ Mobility Assessed: Yes Dentition: Good Dentition - Neurological Assessment Level of Consciousness: Awake, Alert, Appropriate Hx Seizures: No Numbness or tingling in extremities: No - Anesthesia Plan Anesthesia Risk discussed: Yes Anesthesia Plan: Verified ASA Class: III Anesthesia Type: MAC [facility] History I have reviewed the patient's past medical history: Yes Medical History: Reports:: Hypertension Denies:: Cancer, Diabetes Mellitus Type 1, Diabetes Mellitus Type 2, MRSA *Have you ever received a pneumonia vaccine?: No *Have you received a flu vaccine this season?: Yes Other Medical History: Reports: Anemia, Arthritis, Hypothyroidism, Thyroid Disease Anesthesia experience/problems:: none Other Surgeries: Yes: Colonoscopy, Hernia Repair, Other (Breast reduction) Amputation: No Fractures: No - *Social History Educational Level: Completed GED/General Educational Development Smoking Status: Former smoker Tobacco Type: cigarettes Alcohol Intake: never Substance Use Type: other *Occupational Status:: retired Housing: house Household Members: none *Travel in the last 8 weeks: None Family Hx:: Asthma, Cancer, Heart Attack, Hyperlipidemia, Hypertension
--- NOTE | 2019-07-27 09:47 | Procedure Note ---
- Procedure: Date: 07/27/19 Procedure Performed:: Esophagogastroduodenoscopy with biopsy Indications:: Upper gastrointestinal hemorrhage Performing Provider:: Pb Penny MD Referring Provider:: Drs. Molina and Caesar Sedation:: Monitored anesthesia care Procedure:: After informed consent was obtained the patient was taken to the endoscopy suite. Sedation ensued after the patient was transferred to the left lateral decubitus position. Pulse, blood pressure, and oxygen saturation were monitored throughout the procedure. The endoscope was advanced beyond the duodenal bulb. Retroflexion within the gastric lumen was accomplished. The gastroscope was carefully removed and the patient was transferred to recovery in stable condition. Please see "findings" and "specimens" below for detail. Findings:: Complex lobulated mucosal form distal esophagus Large complex hiatal hernia Significant gastric tortuosity secondary to herniation Very large volume of clotted blood throughout gastric lumen Visualization extremely difficult secondary to herniation/tortuosity/volume of clot Apparent ulceration with no sign of active bleeding noted in mid gastric body on retroflexion (exact location difficult to ascertain secondary to visualization limitations) Specimens:: Mid gastric body biopsy Recommendations:: Clear liquid diet for now Continue PPI Carafate Short-term repeat EGD for improved visualization Serial hemoglobin/hematocrit Complications:: No immediate with the exception of visualization limitations as stated above. Estimated blood obtained (mL): 1
--- NOTE | 2019-07-27 11:14 | Pharmacy Consult Notes ---
[facility] Pharmacy VTE Monitoring - Patient Demographics Admission date: 07/26/19 Report Date: 07/27/19 Time: 11:14 Allergies/Adverse Reactions: Patient Allergies No Known Allergies Allergy (Verified 11/14/18 09:42) Height: 1.6 m Weight: 67.8 kg Patient Problems: Current Active Problems Upper gastrointestinal bleed (Acute) Pleural effusion, left (Acute) Hypothermia (Acute) Hemorrhagic shock (Acute) - VTE Risk Labs: VTE Related Lab Results Hgb 9.8 g/dL (12.2-16.2) L D 07/27/19 07:50 Hct 31.1 % (37.0-47.0) L 07/27/19 07:50 Plt Count 227 K/mm3 (142-424) D 07/27/19 07:50 PT 11.1 seconds (9.4-11.8) 07/26/19 21:30 INR 1.07 (0.9-1.1) 07/26/19 21:30 APTT 21.1 seconds (23.6-34.0) L 07/26/19 21:30 BUN 74 mg/dL (7-18) H 07/26/19 21:30 Creatinine 1.16 mg/dL (0.55-1.02) H 07/26/19 21:30 Estimated Creat Clear 39 mL/min (50-200) 07/26/19 21:30 Was VTE Risk Assessment Performed: Yes VTE Score: 2 VTE Risk Level: Very Low Risk - Prophylaxis VTE Prophylaxis Ordered?: Yes Types of VTE Prophylaxis: TEDS Knee High Location of Applied Device: Bilateral Lower Extremeties - VTE Diagnosis Confirmed Treatment or plan recommended: Continue Current Treatment
--- NOTE | 2019-07-27 11:32 | History & Physical Report ---
*Admission Date: 07/26/19 *Chief complaint: bloody diarrhea *History of present illness: 73 year old female with a history of GERD and a very remote history of a peptic ulcer was brought to [facility] ER last night after being found in the floor of her home covered in bloody and dark black stool. Patient states she felt in her normal state of health until yesterday morning. Upon awakening yesterday she began to have vomiting and diarrhea and felt like she had a intestinal virus infection. She restricted her oral intake and rested during the day but in the evening she started passing dark black stool. She felt weak and sat down in the floor. She states she had no injury but was so weak she could not stand up. Her family came to check on her and found her lying in the floor. She has a large hiatal hernia and takes Reglan for treatment, it is unclear if she is take Prevacid or not. H/H drawn in the office January 2019 was 13.3/40. [facility] History Medical History: Reports:: Asthma, Gastroesophageal Reflux Disease(GERD), Hypertension, Osteoporosis, Transient Ischemic Attacks (TIA) Denies:: Cancer, Diabetes Mellitus Type 1, Diabetes Mellitus Type 2, MRSA, Seizures *Have you ever received a pneumonia vaccine?: No *Have you received a flu vaccine this season?: Yes Other Medical History: Reports: Anemia, Arthritis, Hypothyroidism. Denies: Blood Transfusion Reaction Anesthesia experience/problems:: none Laterality Cases: Bilateral: Cataract, Myringotomy (Ear Tubes) Other Surgeries: Yes: Colonoscopy, Hernia Repair (Hiatal), Other (Breast reduction) Amputation: No Fractures: No - *Social History Educational Level: Completed GED/General Educational Development Smoking Status: Former smoker Tobacco Type: cigarettes Alcohol Intake: never Substance Use Type: other *Occupational Status:: retired Housing: house Household Members: none *Travel in the last 8 weeks: None Family Hx:: Asthma, Cancer, Heart Attack, Hyperlipidemia, Hypertension Review of Systems - Constitutional Reports other (snores), Denies chills, Denies fever(s) - Eyes Denies blurry vision - ENT Denies bleeding gums - *Cardiovascular Denies chest pain - *Respiratory Denies cough - *Genitourinary Denies difficulty urinating - *Musculoskeletal Denies joint pain - Integumentary/Breasts Denies rash - *Neurologic Denies dizziness, Denies headache(s) - Psychiatric Denies anxiety, Denies depression Meds Home Medications Medication Instructions Recorded Confirmed Type Amlodipine Besylate [Norvasc 5mg 5 mg PO DAILY 08/09/17 07/27/19 History tablet] Aspirin/Dipyridamole [Aggrenox 1 each PO BID 08/09/17 07/27/19 History 25mg-200mg Capsule] Calcium Carbonate 600 mg PO BID 08/09/17 07/27/19 History Lansoprazole [Prevacid] 30 mg PO DAILY 08/09/17 07/27/19 History Alendronate Sodium [Fosamax 70mg 70 mg PO WEEKLY 04/17/19 07/27/19 History Tablet] Ferrous Sulfate [Iron] 65 mg PO DAILY 07/27/19 07/27/19 History Fluticasone/Salmeterol [Advair 1 puff IH BID 07/27/19 07/27/19 History 250/50mcg Diskus] Levothyroxine Sodium 75 mcg PO DAILY 07/27/19 07/27/19 History [Levothyroxine 75mcg (0.075mg) Tab] Metoclopramide HCl [Metoclopramide 10 mg PO BID 07/27/19 07/27/19 History 10mg Tablet] Simvastatin 20 mg PO HS 07/27/19 07/27/19 History Allergies Allergy/AdvReac Type Severity Reaction Status Date / Time No Known Allergies Allergy Verified 11/14/18 09:42 Exam Vital signs and Labs for Last 24 Hours: Temp Pulse Resp BP Pulse Ox 97.4 F L 87 18 102/55 L 91 L 07/27/19 10:05 07/27/19 10:05 07/27/19 10:05 07/27/19 10:05 07/27/19 10:05 Laboratory Results - last 24 hr 07/26/19 21:30: WBC 15.0 H, RBC 2.70 L, Hgb 7.7 L*, Hct 26.0 L, MCV 96.3, MCH 28.6, MCHC 29.7 L, RDW 15.3, Plt Count 337, MPV 8.4, Neut % (Auto) 81.4 H, Lymph % (Auto) 12.0, [place] % (Auto) 6.4, Eos % (Auto) 0.1, Baso % (Auto) 0.2, Neut # (Auto) 12.2 H, Lymph # (Auto) 1.8, [place] # (Auto) 1.0, Eos # (Auto) 0.0, Baso # (Auto) 0.0, Total Counted 100, Neutrophils % (Manual) 85 H, Lymphocytes % (Manual) 15, Platelet Estimate Normal, Hypochromasia 1+ 07/26/19 21:30: PT 11.1, INR 1.07, APTT 21.1 L 07/26/19 21:30: Sodium 147 H, Potassium 4.2, Chloride 114 H, Carbon Dioxide 20 L , Anion Gap 17.2 H, BUN 74 H, Creatinine 1.16 H, Estimated Creat Clear 39, Estimated GFR 46 L, Est GFR ( Amer) 55 L, Glucose 138 H, Calcium 7.8 L, Total Bilirubin 0.2, AST 12 L, ALT 14, Alkaline Phosphatase 51, Troponin I 0.38 H, Total Protein 5.0 L, Albumin 2.0 L, Globulin 3.0, Albumin/Globulin Ratio 0.7 L 07/26/19 21:30: Stool Occult Blood Positive A 07/26/19 21:50: Blood Type O Positive, Antibody Screen Negative, Crossmatch (AHG) See Detail 07/26/19 23:00: Urine Color Yellow, Urine Appearance Clear, Urine pH 5.0, Ur Specific [place] 1.020, Urine Protein Negative, Urine Glucose (UA) Negative, Urine Ketones Negative, Urine Blood Negative, Urine Nitrate Negative, Urine Bilirubin Negative, Urine Urobilinogen 0.2, Ur Leukocyte Esterase Negative, Urine RBC 3-5, Urine WBC 3-5, Ur Squamous Epith Cells 5-10, Urine Bacteria 1+, Hyaline Casts 5-10, Urine Mucus 1+ 07/27/19 00:35: Troponin I 0.62 H 07/27/19 00:35: Blood Type Confirm O Positive 07/27/19 07:50: WBC 10.0 D, RBC 3.45 L D, Hgb 9.8 L D, Hct 31.1 L, MCV 90.3, MCH 28.3, MCHC 31.4 L, RDW 15.7, Plt Count 227 D, MPV 8.3, Neut % (Auto) 75.0, Lymph % (Auto) 16.0, [place] % (Auto) 8.7, Eos % (Auto) 0.1, Baso % (Auto) 0.2, Neut # (Auto) 7.5, Lymph # (Auto) 1.6, [place] # (Auto) 0.9, Eos # (Auto) 0.0, Baso # (Auto) 0.0 07/27/19 07:50: Troponin I 0.74 H Vital Signs - 24 hr 07/26/19 21:38 07/26/19 21:43 07/26/19 21:57 Temperature 95.0 F L Pulse Rate Pulse Rate [Right] 94 H 86 87 Respiratory Rate 18 18 16 Blood Pressure Blood Pressure [Right Arm] 66/33 L 81/62 L 88/44 L 02 Sat by Pulse Oximetry 76 L 88 L 88 L 07/26/19 22:18 07/26/19 23:22 07/27/19 00:09 Temperature 97.1 F L Pulse Rate 94 H Pulse Rate [Right] 85 92 H Respiratory Rate 16 16 Blood Pressure 69/41 L Blood Pressure [Right Arm] 83/44 L 73/52 L 02 Sat by Pulse Oximetry 100 100 07/27/19 00:44 07/27/19 01:10 07/27/19 01:15 Temperature 99.7 F H 97.8 F 97.4 F L Pulse Rate 99 H 95 H 121 H Pulse Rate [Right] Respiratory Rate 18 28 H 28 H Blood Pressure 82/56 L 84/54 L 94/73 L Blood Pressure [Right Arm] 02 Sat by Pulse Oximetry 98 96 97 07/27/19 01:20 07/27/19 01:25 07/27/19 01:40 Temperature 97.3 F L 97.1 F L 97.3 F L Pulse Rate 100 H 98 H 92 H Pulse Rate [Right] Respiratory Rate 16 14 18 Blood Pressure 85/55 L 73/56 L 80/54 L Blood Pressure [Right Arm] 02 Sat by Pulse Oximetry 94 L 91 L 98 07/27/19 01:55 07/27/19 02:10 07/27/19 02:50 Temperature 97.5 F L 97.4 F L 97.7 F Pulse Rate 104 H 93 H 91 H Pulse Rate [Right] Respiratory Rate 16 14 16 Blood Pressure 75/49 L 81/56 L 92/62 L Blood Pressure [Right Arm] 02 Sat by Pulse Oximetry 98 100 99 12/29/19 03:50 07/27/19 04:00 07/27/19 04:05 Temperature 98.5 F 98.7 F 98.6 F Pulse Rate 96 H 92 H 91 H Pulse Rate [Right] Respiratory Rate 16 16 16 Blood Pressure 99/63 L 105/73 L 120/69 Blood Pressure [Right Arm] 02 Sat by Pulse Oximetry 99 99 97 07/27/19 04:10 07/27/19 04:15 07/27/19 04:30 Temperature 98.7 F 98.4 F 98.5 F Pulse Rate 94 H 93 H 92 H Pulse Rate [Right] Respiratory Rate 20 16 16 Blood Pressure 99/69 L 110/80 103/68 L Blood Pressure [Right Arm] 02 Sat by Pulse Oximetry 99 96 100 07/27/19 04:45 07/27/19 05:00 07/27/19 06:00 Temperature 98.6 F 98.5 F 97.5 F L Pulse Rate 92 H 88 96 H Pulse Rate [Right] Respiratory Rate 16 16 16 Blood Pressure 114/72 130/75 118/87 Blood Pressure [Right Arm] 02 Sat by Pulse Oximetry 96 97 98 07/27/19 06:30 07/27/19 07:30 07/27/19 08:00 Temperature 98.5 F 98.4 F 97.5 F L Pulse Rate 87 84 Pulse Rate [Right] 97 H Respiratory Rate 16 16 16 Blood Pressure 125/83 125/95 H Blood Pressure [Right Arm] 109/72 L 02 Sat by Pulse Oximetry 99 99 97 07/27/19 09:45 07/27/19 09:55 07/27/19 10:05 Temperature 97.5 F L 97.4 F L Pulse Rate Pulse Rate [Right] 97 H 89 87 Respiratory Rate 16 18 18 Blood Pressure Blood Pressure [Right Arm] 82/55 L 105/60 L 102/55 L 02 Sat by Pulse Oximetry 90 L 91 L 91 L I & O for Last 24 hours: Intake & Output 07/24/19 07/25/19 07/26/19 07/27/19 23:59 23:59 23:59 23:59 Intake Total 3578 / 3578 Balance 3578 / 3578 Weight 130 lb 149 lb 7.574 oz - Constitutional no acute distress - *Routine HEENT Exam Head: Present: normocephalic Eye: Present: EOMI ENT: Present: mucous membranes moist - *Routine Neck Exam Present: supple. Absent: lymphadenopathy - *Routine Respiratory Exam Present: CTA bilaterally - *Routine Cardiovascular Exam Present: RRR - *Routine Abdominal Exam Present: soft, normoactive bowel sounds. Absent: tenderness - *Routine Extremities Exam Absent: cyanosis, clubbing, edema - *Routine Skin Exam Present: warm. Absent: rash - *Routine Neurological Exam Present: alert Assessment and Plan (1) Upper gastrointestinal bleed Current visit: Yes Status: Acute Category: Medical Code(s): K92.2 - Gastrointestinal hemorrhage, unspecified (2) Anemia associated with acute blood loss Current visit: Yes Status: Acute Category: Medical Code(s): D62 - Acute posthemorrhagic anemia (3) Hypotension Current visit: Yes Status: Acute Category: Medical Code(s): I95.9 - Hypotension, unspecified (4) Hypovolemia due to hemorrhage Current visit: Yes Status: Acute Category: Medical Code(s): E86.1 - Hypovolemia; R58 - Hemorrhage, not elsewhere classified (5) Peptic ulcer disease with hemorrhage Current visit: Yes Status: Acute Category: Medical Code(s): K27.4 - Chronic or unspecified peptic ulcer, site unspecified, with hemorrhage (6) Asthma Current visit: Yes Status: Acute Category: Medical Code(s): J45.909 - Unspecified asthma, uncomplicated (7) GERD (gastroesophageal reflux disease) Current visit: Yes Status: Acute Category: Medical Code(s): K21.9 - Gastro-esophageal reflux disease without esophagitis (8) Hiatal hernia Current visit: Yes Status: Acute Category: Medical Code(s): K44.9 - Diaphragmatic hernia without obstruction or gangrene (9) History of TIA (transient ischemic attack) Current visit: Yes Status: Acute Category: Medical Code(s): Z86.73 - Personal history of transient ischemic attack (TIA), and cerebral infarction without residual deficits - Assessment and plan all Dx Assessment and Plan for all problems:: Patient admitted for further evaluation and management of her acute upper GI bleed with anemia. She has had 2 units of PRBC's and an EGD this morning. She had a large amount of blood in her stomach. Plan to recheck H/H in a few hours and give a clear liquid diet.
[2019-07-27 14:13] LABS: Hematocrit 29.7 % (37.0-47.0); Hemoglobin 9.5 g/dL (12.2-16.2)
[2019-07-28 07:31] LABS: Eosinophils % 0.1 % (0.1-12.0); Lymphocytes % 9.2 % (10-50); Monocytes # 0.8 K/mm3 (0.1-1.0); Red Cell Distribution Width 16.7 % (11.5-17.5)
[2019-07-28 07:49] LABS: Albumin Level 1.5 gm/dL (3.4-5.0); Albumin/Globulin Ratio 0.7 (1.1-1.8); Bilirubin,Total 0.3 mg/dL (0.2-1.0); Globulin 2.2 gm/dl (1.3-3.2); Total Protein,Serum 3.7 gm/dL (6.4-8.2)
[2019-07-28 07:53] LABS: Basophils % 0.2 % (0.1-2.0); Mean Corpuscular HGB Conc 30.6 g/dL (31.8-35.4); Mean Platelet Volume 8.8 fl (7.4-10.4); Monocytes % 7.4 % (1.7-9.3); Neutrophils % 83.1 % (37.0-80.0); Platelet Count 156 K/mm3 (142-424); Red Blood Count 2.18 M/mm3 (4.20-5.40); White Blood Count 10.9 K/mm3 (4.8-10.8)
[2019-07-28 07:59] LABS: Hematocrit 20.2 % (37.0-47.0); Hemoglobin 6.2 g/dL (12.2-16.2)
[2019-07-28 08:23] LABS: Hemoglobin 6.1 g/dL (12.2-16.2)
[2019-07-28 08:24] LABS: Hematocrit 20.2 % (37.0-47.0)
--- NOTE | 2019-07-28 08:25 | Progress Note ---
Subjective Patient reports: no new complaints (She states that she "feels okay") Exam Vital signs and Labs for Last 24 Hours: Temp Pulse Resp BP Pulse Ox 98.5 F 80 17 119/60 91 L 07/28/19 03:37 07/28/19 03:37 07/28/19 03:37 07/28/19 03:37 07/28/19 03:37 Laboratory Results - last 24 hr 07/27/19 07:50: Troponin I 0.74 H 07/27/19 13:30: Hgb 9.5 L, Hct 29.7 L 07/28/19 07:02: WBC 10.9 H, RBC 2.18 L D, Hgb 6.2 L* D, Hct 20.2 L*, MCV 93.0, MCH 28.4, MCHC 30.6 L, RDW 16.7, Plt Count 156 D, MPV 8.8, Neut % (Auto) 83.1 H , Lymph % (Auto) 9.2 L, [place] % (Auto) 7.4, Eos % (Auto) 0.1, Baso % (Auto) 0.2, Neut # (Auto) 9.0 H, Lymph # (Auto) 1.0, [place] # (Auto) 0.8, Eos # (Auto) 0.0, Baso # (Auto) 0.0 I & O for Last 24 hours: Intake & Output 07/25/19 07/26/19 07/27/19 07/28/19 11:59 11:59 11:59 11:59 Intake Total 3578 / 3578 987 / 987 Output Total 200 / 200 Balance 3578 / 3578 787 / 787 Weight 149 lb 7.574 oz 147 lb 8 oz - Constitutional no acute distress - *Routine Cardiovascular Exam Present: RRR - *Routine Abdominal Exam Present: soft Progress Note: A&P (1) Upper gastrointestinal bleed Status: Acute Current Visit: Yes (2) Anemia associated with acute blood loss Status: Acute Current Visit: Yes (3) Hypotension Status: Acute Current Visit: Yes (4) Hypovolemia due to hemorrhage Status: Acute Current Visit: Yes (5) Peptic ulcer disease with hemorrhage Status: Acute Assessment and plan: Significant decline in a.m. hemoglobin. She is not currently tachycardic and states that she "feels okay". A stat repeat H/H has been ordered and plans for transfusion are ongoing. Although visualization will likely be very limited (secondary to large hiatal hernia and volume of blood in stomach) I have discussed repeat EGD. She may require transfer to tertiary care center equipped for large-volume transfusion. She would also be better served at a tertiary care center if surgical intervention is warranted (secondary to comorbid conditions). In addition, she may require transfer to facility equipped for large volume evacuation coupled with multiple modalities for hemostasis. Current Visit: Yes (6) Asthma Status: Acute Current Visit: Yes (7) GERD (gastroesophageal reflux disease) Status: Acute Current Visit: Yes (8) Hiatal hernia Status: Acute Current Visit: Yes (9) History of TIA (transient ischemic attack) Status: Acute Current Visit: Yes
--- NOTE | 2019-07-28 08:25 | Progress Note ---
<Maty Gross - Last Filed: 07/28/19 08:29> Internal Medicine - PN: Subj *Date: 07/28/19 *Time: 08:29 Interval history: Hemoglobin is 6.2 with hematocrit of 20.2. BUN 31 creatinine 0.57 troponin decreased to 0.27. Vital signs have remained stable she denies. Dizziness Patient has had no further vomiting or stool since yesterday. She has tolerated clear liquids without nausea or vomiting. She denies abdominal pain. She feels she is breathing okay. She denies chest pain She has been seen per Dr. Spears who explained to her repeating her H&H to see if this is accurate. Also repeating EGD here versus going to . Await H&H results. See Dr. Spears note Exam Vital signs and Labs for Last 24 Hours: Temp Pulse Resp BP Pulse Ox 98.5 F 80 17 119/60 91 L 07/28/19 03:37 07/28/19 03:37 07/28/19 03:37 07/28/19 03:37 07/28/19 03:37 Laboratory Results - last 24 hr 07/27/19 07:50: Troponin I 0.74 H 07/27/19 13:30: Hgb 9.5 L, Hct 29.7 L 07/28/19 07:02: WBC 10.9 H, RBC 2.18 L D, Hgb 6.2 L* D, Hct 20.2 L*, MCV 93.0, MCH 28.4, MCHC 30.6 L, RDW 16.7, Plt Count 156 D, MPV 8.8, Neut % (Auto) 83.1 H , Lymph % (Auto) 9.2 L, [place] % (Auto) 7.4, Eos % (Auto) 0.1, Baso % (Auto) 0.2, Neut # (Auto) 9.0 H, Lymph # (Auto) 1.0, [place] # (Auto) 0.8, Eos # (Auto) 0.0, Baso # (Auto) 0.0 07/28/19 07:02: Sodium 145, Potassium 4.0, Chloride 116 H, Carbon Dioxide 23, Anion Gap 10.0, BUN 31 H D, Creatinine 0.57 D, Estimated Creat Clear 51, Estimated GFR 103, Est GFR ( Amer) 125 D, Glucose 124 H, Total Bilirubin 0.3, AST 13 L, ALT 9 L D, Alkaline Phosphatase 33 L, Total Creatine Kinase 90, CK-MB (CK-2) 2.3, CK-MB (CK-2) Rel Index 2.6, Troponin I 0.27 H, Total Protein 3.7 L D, Albumin 1.5 L D, Globulin 2.2, Albumin/Globulin Ratio 0.7 L I & O for Last 24 hours: Intake & Output 07/25/19 07/26/19 07/27/19 07/28/19 11:59 11:59 11:59 11:59 Intake Total 3578 / 3578 987 / 987 Output Total 200 / 200 Balance 3578 / 3578 787 / 787 Weight 149 lb 7.574 oz 147 lb 8 oz - Constitutional no acute distress Comments: Awake and alert and appears comfortable - *Routine Respiratory Exam Present: CTA bilaterally (Anteriorly and posteriorly with good air exchange) - *Routine Cardiovascular Exam Present: irregular rhythm - *Routine Abdominal Exam Present: soft, normoactive bowel sounds. Absent: tenderness - *Routine Extremities Exam Absent: edema, calf tenderness - *Routine Neurological Exam Present: alert, oriented X3 Assessment and Plan (1) Upper gastrointestinal bleed Current visit: Yes Status: Acute Category: Medical Code(s): K92.2 - Gastrointestinal hemorrhage, unspecified (2) Anemia associated with acute blood loss Current visit: Yes Status: Acute Category: Medical Code(s): D62 - Acute posthemorrhagic anemia (3) Hypotension Current visit: Yes Status: Acute Category: Medical Code(s): I95.9 - Hypotension, unspecified (4) Hypovolemia due to hemorrhage Current visit: Yes Status: Acute Category: Medical Code(s): E86.1 - Hypovolemia; R58 - Hemorrhage, not elsewhere classified (5) Peptic ulcer disease with hemorrhage Current visit: Yes Status: Acute Category: Medical Code(s): K27.4 - Chronic or unspecified peptic ulcer, site unspecified, with hemorrhage (6) Asthma Current visit: Yes Status: Acute Category: Medical Code(s): J45.909 - Unspecified asthma, uncomplicated (7) GERD (gastroesophageal reflux disease) Current visit: Yes Status: Acute Category: Medical Code(s): K21.9 - Gastro-esophageal reflux disease without esophagitis (8) Hiatal hernia Current visit: Yes Status: Acute Category: Medical Code(s): K44.9 - Diaphragmatic hernia without obstruction or gangrene (9) History of TIA (transient ischemic attack) Current visit: Yes Status: Acute Category: Medical Code(s): Z86.73 - Personal history of transient ischemic attack (TIA), and cerebral infarction without residual deficits - Assessment and plan all Dx Assessment and Plan for all problems:: Repeat H&H is pending. Further decision to be made if hemoglobin is really 6.2. We will set up four units of packed red blood cells as per Dr. Penny. <Osmani Maynard - Last Filed: 07/28/19 09:13> Internal Medicine - PN: Subj *Date: 07/28/19 *Time: 09:11 Exam Vital signs and Labs for Last 24 Hours: Temp Pulse Resp BP Pulse Ox 98.7 F 78 18 100/55 L 94 L 07/28/19 08:00 07/28/19 08:00 07/28/19 08:00 07/28/19 08:00 07/28/19 08:00 Laboratory Results - last 24 hr 07/26/19 21:50: Crossmatch (AHG) See Detail 07/27/19 13:30: Hgb 9.5 L, Hct 29.7 L 07/28/19 07:02: WBC 10.9 H, RBC 2.18 L D, Hgb 6.2 L* D, Hct 20.2 L*, MCV 93.0, MCH 28.4, MCHC 30.6 L, RDW 16.7, Plt Count 156 D, MPV 8.8, Neut % (Auto) 83.1 H , Lymph % (Auto) 9.2 L, [place] % (Auto) 7.4, Eos % (Auto) 0.1, Baso % (Auto) 0.2, Neut # (Auto) 9.0 H, Lymph # (Auto) 1.0, [place] # (Auto) 0.8, Eos # (Auto) 0.0, Baso # (Auto) 0.0 07/28/19 07:02: Sodium 145, Potassium 4.0, Chloride 116 H, Carbon Dioxide 23, Anion Gap 10.0, BUN 31 H D, Creatinine 0.57 D, Estimated Creat Clear 51, Estimated GFR 103, Est GFR ( Amer) 125 D, Glucose 124 H, Total Bilirubin 0.3, AST 13 L, ALT 9 L D, Alkaline Phosphatase 33 L, Total Creatine Kinase 90, CK-MB (CK-2) 2.3, CK-MB (CK-2) Rel Index 2.6, Troponin I 0.27 H, Total Protein 3.7 L D, Albumin 1.5 L D, Globulin 2.2, Albumin/Globulin Ratio 0.7 L 07/28/19 08:10: Hgb 6.1 L*, Hct 20.2 L* I & O for Last 24 hours: Intake & Output 07/25/19 07/26/19 07/27/19 07/28/19 23:59 23:59 23:59 23:59 Intake Total 3778 / 3778 1027 / 1027 Output Total 200 / 200 Balance 3578 / 3578 1027 / 1027 Weight 130 lb 149 lb 7.574 oz 147 lb 8 oz Assessment and Plan (1) Upper gastrointestinal bleed Current visit: Yes Status: Acute Category: Medical Code(s): K92.2 - [place] strointestinal hemorrhage, unspecified (2) Anemia associated with acute blood loss Current visit: Yes Status: Acute Category: Medical Code(s): D62 - Acute posthemorrhagic anemia (3) Hypotension Current visit: Yes Status: Acute Category: Medical Code(s): I95.9 - Hypotension, unspecified (4) Hypovolemia due to hemorrhage Current visit: Yes Status: Acute Category: Medical Code(s): E86.1 - Hypovolemia; R58 - Hemorrhage, not elsewhere classified (5) Peptic ulcer disease with hemorrhage Current visit: Yes Status: Acute Category: Medical Code(s): K27.4 - Chronic or unspecified peptic ulcer, site unspecified, with hemorrhage (6) Asthma Current visit: Yes Status: Acute Category: Medical Code(s): J45.909 - Unspecified asthma, uncomplicated (7) GERD (gastroesophageal reflux disease) Current visit: Yes Status: Acute Category: Medical Code(s): K21.9 - Gastro-esophageal reflux disease without esophagitis (8) Hiatal hernia Current visit: Yes Status: Acute Category: Medical Code(s): K44.9 - Diaphragmatic hernia without obstruction or gangrene (9) History of TIA (transient ischemic attack) Current visit: Yes Status: Acute Category: Medical Code(s): Z86.73 - Personal history of transient ischemic attack (TIA), and cerebral infarction without residual deficits (10) Elevated troponin Current visit: Yes Status: Acute Category: Medical Code(s): R79.89 - Other specified abnormal findings of blood chemistry (11) Renal insufficiency Current visit: Yes Status: Acute Category: Medical Code(s): N28.9 - Disorder of kidney and ureter, unspecified - Assessment and plan all Dx Assessment and Plan for all problems:: Saw patient, agree with plan for repeat EGD and PRBC transfusion today.
[2019-07-28 09:37] LABS: Calcium 6.6 mg/dL (8.5-10.1)
--- NOTE | 2019-07-28 12:18 | Procedure Note ---
- Procedure: Date: 07/28/19 Procedure Performed:: Esophagogastroduodenoscopy Indications:: Upper gastrointestinal hemorrhage Gastric ulcer Acute drop in hemoglobin Performing Provider:: Pb Penny MD Referring Provider:: Drs. Maynard and Jesse Sedation:: Monitored anesthesia care Procedure:: After informed consent was obtained the patient was taken to the endoscopy suite. Sedation ensued after the patient was transferred to the left lateral decubitus position. Pulse, blood pressure, and oxygen saturation were monitored throughout the procedure. The endoscope was advanced beyond the duodenal bulb. Retroflexion within the gastric lumen was accomplished. The gastroscope was carefully removed and the patient was transferred to recovery in stable condition. Please see "findings" and "specimens" below for detail. Findings:: No sign of active bleeding Large volume of old blood/clot within gastric lumen (particularly within herniation) Gastric ulceration once again noted. No sign of active bleeding. Fibrinous exudate at base without adherent clot. The ulceration was essentially in the mid gastric body but displaced due to large herniation. Specimens:: None Recommendations:: Follow-up response to additional blood transfusion May require transfer to tertiary care center secondary to need for improved endoscopic evacuation of gastric contents, possible need for large-volume transfusion, and multiple comorbid conditions in light of possible need for acute surgical intervention. Complications:: No immediate Estimated blood obtained (mL): 0
[2019-07-28 17:52] LABS: Hematocrit 37.4 % (37.0-47.0)
[2019-07-28 17:54] LABS: Hemoglobin 11.8 g/dL (12.2-16.2)
--- NOTE | 2019-07-28 18:22 | Electrocardiograph Report ---
APPROVED REPORT Exam: Resting ECG HR:88 bpm ECG Measurements Heart Rate 88 AXES VA 184 P 55 QRSd 74 QRS 17 QT 370 T102 QTc 447 <Conclusion> Sinus Rhythm with PAC'S and PVC'S Abnormal ECG Electronically signed by : Joseph Garibay, 07/28/2019 18:21:41
[2019-07-29 07:24] LABS: Basophils % 0.3 % (0.1-2.0); Eosinophils % 0.5 % (0.1-12.0); Hematocrit 26.9 % (37.0-47.0); Lymphocytes # 1.3 K/mm3 (0.7-4.5); Lymphocytes % 15.4 % (10-50); Mean Corpuscular HGB Conc 31.8 g/dL (31.8-35.4); Mean Corpuscular Volume 90.5 fl (81-99); Mean Platelet Volume 9.5 fl (7.4-10.4); Monocytes # 0.8 K/mm3 (0.1-1.0); Monocytes % 9.6 % (1.7-9.3); Neutrophils # 6.1 K/mm3 (1.8-7.8); Neutrophils % 74.2 % (37.0-80.0); Platelet Count 90 K/mm3 (142-424); Red Blood Count 2.97 M/mm3 (4.20-5.40); Red Cell Distribution Width 16.4 % (11.5-17.5); White Blood Count 8.3 K/mm3 (4.8-10.8)
[2019-07-29 07:30] LABS: Anion Gap 9.9 mEq/L (5-15); Calcium 6.2 mg/dL (8.5-10.1)
[2019-07-29 07:49] LABS: Hemoglobin 8.5 g/dL (12.2-16.2)
--- NOTE | 2019-07-29 08:04 | Progress Note ---
Subjective Patient reports: no new complaints Exam Vital signs and Labs for Last 24 Hours: Temp Pulse Resp BP Pulse Ox 98.6 F 76 18 114/54 L 93 L 07/29/19 07:40 07/29/19 07:40 07/29/19 07:40 07/29/19 07:40 07/29/19 07:40 Laboratory Results - last 24 hr 07/26/19 21:50: Blood Type O Positive, Antibody Screen Negative, Crossmatch (AHG) See Detail 07/28/19 07:02: Sodium 145, Potassium 4.0, Chloride 116 H, Carbon Dioxide 23, Anion Gap 10.0, BUN 31 H D, Creatinine 0.57 D, Estimated Creat Clear 51, Estimated GFR 103, Est GFR ( Amer) 125 D, Glucose 124 H, Calcium 6.6 L D , Total Bilirubin 0.3, AST 13 L, ALT 9 L D, Alkaline Phosphatase 33 L, Total Creatine Kinase 90, CK-MB (CK-2) 2.3, CK-MB (CK-2) Rel Index 2.6, Troponin I 0.27 H, Total Protein 3.7 L D, Albumin 1.5 L D, Globulin 2.2, Albumin/Globulin Ratio 0.7 L 07/28/19 08:10: Hgb 6.1 L*, Hct 20.2 L* 07/28/19 16:52: Hgb 11.8 L D, Hct 37.4 07/29/19 07:08: WBC 8.3, RBC 2.97 L D, Hgb 8.5 L D, Hct 26.9 L, MCV 90.5, MCH 28.8, MCHC 31.8, RDW 16.4, Plt Count 90 L D, MPV 9.5, Neut % (Auto) 74.2, Lymph % (Auto) 15.4, [place] % (Auto) 9.6 H, Eos % (Auto) 0.5, Baso % (Auto) 0.3, Neut # (Auto) 6.1, Lymph # (Auto) 1.3, [place] # (Auto) 0.8, Eos # (Auto) 0.0, Baso # (Auto) 0.0 07/29/19 07:08: Sodium 143, Potassium 3.9, Chloride 115 H, Carbon Dioxide 22, Anion Gap 9.9, BUN 30 H, Creatinine 0.53 L, Estimated Creat Clear 51, Estimated GFR 112, Est GFR ( Amer) 136, Glucose 113 H, Calcium 6.2 L I & O for Last 24 hours: Intake & Output 07/26/19 07/27/19 07/28/19 07/29/19 11:59 11:59 11:59 11:59 Intake Total 3578 / 3578 1477 / 1477 3344 / 3344 Output Total 200 / 200 525 / 525 Balance 3578 / 3578 1277 / 1277 2819 / 2819 Weight 149 lb 7.574 oz 147 lb 8 oz - Constitutional no acute distress - *Routine Respiratory Exam Absent: respiratory distress - *Routine Cardiovascular Exam Present: RRR Progress Note: A&P (1) Upper gastrointestinal bleed Status: Acute Assessment and plan: Likely secondary to gastric ulcer. She has undergone esophagogastroduodenoscopy twice in the last 48 hours. No sign of active bleeding noted; however, an extremely large volume of clotted blood and non-digestible particles made vi sualization extremely limited in certain areas of her stomach (in particular within her large hiatal hernia). She has responded well to blood transfusion; however, she appears to continue to have blood loss. I recommend transfer to a tertiary care center secondary to need for improved endoscopic evacuation of gastric contents (large-volume evacuation catheters), possible need for ongoing transfusion requirements beyond the capabilities of this facility, and multiple comorbid conditions in light of possible need for acute surgical intervention. Current Visit: Yes (2) Anemia associated with acute blood loss Status: Acute Current Visit: Yes (3) Hypotension Status: Acute Current Visit: Yes (4) Hypovolemia due to hemorrhage Status: Acute Current Visit: Yes (5) Peptic ulcer disease with hemorrhage Status: Acute Current Visit: Yes (6) Asthma Status: Acute Current Visit: Yes (7) GERD (gastroesophageal reflux disease) Status: Acute Current Visit: Yes (8) Hiatal hernia Status: Acute Current Visit: Yes (9) History of TIA (transient ischemic attack) Status: Acute Current Visit: Yes (10) Elevated troponin Status: Acute Current Visit: Yes (11) Renal insufficiency Status: Acute Current Visit: Yes
--- NOTE | 2019-07-29 08:13 | Progress Note ---
Internal Medicine - PN: Subj *Date: 07/29/19 *Time: 08:29 Interval history: Patient denies chest pain and shortness of breath. She denies nausea. She has not vomited. She has had no stools. She continues with a Yarbrough catheter to bedside drainage. Her back was hurting yesterday afternoon and she did sit up in a chair which helped. She did sleep last night. Patient has been seen by a surgeon Dr. Spears. Recommends transfer to [facility] due to ongoing bleeding with a decrease in hemoglobin to 8.6 this a.m. He also feels she needs evacuation gastric blood clots. Discussed with daughter and patient. They understand his recommendations. Laboratory Tests 07/28/19 07/29/19 07/29/19 16:52 07:08 07:08 Hgb 11.8 L D 8.5 L D Hct 37.4 26.9 L Sodium 143 Potassium 3.9 Chloride 115 H Carbon Dioxide 22 Anion Gap 9.9 BUN 30 H Creatinine 0.53 L Patient had repeat endoscopy per Dr. Spears yesterday 07/28/19.With findings of no active bleeding and large volume of blood caused within gastric lumen par ticularly within herniation. With recommendation for additional blood transfusion and again possible transfer to tertiary care center Exam Vital signs and Labs for Last 24 Hours: Temp Pulse Resp BP Pulse Ox 98.6 F 76 18 114/54 L 93 L 07/29/19 07:40 07/29/19 07:40 07/29/19 07:40 07/29/19 07:40 07/29/19 07:40 Laboratory Results - last 24 hr 07/26/19 21:50: Blood Type O Positive, Antibody Screen Negative, Crossmatch (AHG) See Detail 07/28/19 07:02: Sodium 145, Potassium 4.0, Chloride 116 H, Carbon Dioxide 23, Anion Gap 10.0, BUN 31 H D, Creatinine 0.57 D, Estimated Creat Clear 51, Estimated GFR 103, Est GFR ( Amer) 125 D, Glucose 124 H, Calcium 6.6 L D , Total Bilirubin 0.3, AST 13 L, ALT 9 L D, Alkaline Phosphatase 33 L, Total Creatine Kinase 90, CK-MB (CK-2) 2.3, CK-MB (CK-2) Rel Index 2.6, Troponin I 0.27 H, Total Protein 3.7 L D, Albumin 1.5 L D, Globulin 2.2, Albumin/Globulin Ratio 0.7 L 07/28/19 08:10: Hgb 6.1 L*, Hct 20.2 L* 07/28/19 16:52: Hgb 11.8 L D, Hct 37.4 07/29/19 07:08: WBC 8.3, RBC 2.97 L D, Hgb 8.5 L D, Hct 26.9 L, MCV 90.5, MCH 28.8, MCHC 31.8, RDW 16.4, Plt Count 90 L D, MPV 9.5, Neut % (Auto) 74.2, Lymph % (Auto) 15.4, [place] % (Auto) 9.6 H, Eos % (Auto) 0.5, Baso % (Auto) 0.3, Neut # (Auto) 6.1, Lymph # (Auto) 1.3, [place] # (Auto) 0.8, Eos # (Auto) 0.0, Baso # (Auto) 0.0 07/29/19 07:08: Sodium 143, Potassium 3.9, Chloride 115 H, Carbon Dioxide 22, Anion Gap 9.9, BUN 30 H, Creatinine 0.53 L, Estimated Creat Clear 51, Estimated GFR 112, Est GFR ( Amer) 136, Glucose 113 H, Calcium 6.2 L I & O for Last 24 hours: Intake & Output 07/26/19 07/27/19 07/28/19 07/29/19 11:59 11:59 11:59 11:59 Intake Total 3578 / 3578 1477 / 1477 3344 / 3344 Output Total 200 / 200 525 / 525 Balance 3578 / 3578 1277 / 1277 2819 / 2819 Weight 149 lb 7.574 oz 147 lb 8 oz - Constitutional no acute distress - *Routine Respiratory Exam Present: CTA bilaterally - *Routine Cardiovascular Exam Present: RRR - *Routine Abdominal Exam Present: soft. Absent: tenderness, distended, guarding Comments: hyperactive bowel sounds - *Routine Extremities Exam Absent: edema, calf tenderness - *Routine Neurological Exam Present: alert, oriented X3 Assessment and Plan (1) Upper gastrointestinal bleed Current visit: Yes Status: Acute Category: Medical Code(s): K92.2 - Gastrointestinal hemorrhage, unspecified (2) Anemia associated with acute blood loss Current visit: Yes Status: Acute Category: Medical Code(s): D62 - Acute posthemorrhagic anemia (3) Hypotension Current visit: Yes Status: Acute Category: Medical Code(s): I95.9 - Hypotension, unspecified (4) Hypovolemia due to hemorrhage Current visit: Yes Status: Acute Category: Medical Code(s): E86.1 - Hypovolemia; R58 - Hemorrhage, not elsewhere classified (5) Peptic ulcer disease with hemorrhage Current visit: Yes Status: Acute Category: Medical Code(s): K27.4 - Chronic or unspecified peptic ulcer, site unspecified, with hemorrhage (6) Asthma Current visit: Yes Status: Acute Category: Medical Code(s): J45.909 - Unspecified asthma, uncomplicated (7) GERD (gastroesophageal reflux disease) Current visit: Yes Status: Acute Category: Medical Code(s): K21.9 - Gastro-esophageal reflux disease without esophagitis (8) Hiatal hernia Current visit: Yes Status: Acute Category: Medical Code(s): K44.9 - Diaphragmatic hernia without obstruction or gangrene (9) History of TIA (transient ischemic attack) Current visit: Yes Status: Acute Category: Medical Code(s): Z86.73 - Per jewell history of transient ischemic attack (TIA), and cerebral infarction without residual deficits (10) Elevated troponin Current visit: Yes Status: Acute Category: Medical Code(s): R79.89 - Other specified abnormal findings of blood chemistry (11) Renal insufficiency Current visit: Yes Status: Acute Category: Medical Code(s): N28.9 - Disorder of kidney and ureter, unspecified - Assessment and plan all Dx Assessment and Plan for all problems:: Does further care with Dr. Rdz.
[2019-07-29 14:06] LABS: Hemoglobin 8.1 g/dL (12.2-16.2)
[2019-07-29 14:11] LABS: Hematocrit 23.5 % (37.0-47.0)
[2019-07-29 20:55] LABS: Hemoglobin 7.2 g/dL (12.2-16.2)
[2019-07-29 20:56] LABS: Hematocrit 21.7 % (37.0-47.0)
[2019-07-30 05:41] LABS: Hemoglobin 9.7 g/dL (12.2-16.2)
[2019-07-30 05:42] LABS: Hematocrit 29.5 % (37.0-47.0)
--- NOTE | 2019-07-30 08:12 | Progress Note ---
Subjective Narrative: Patient had diminished H/H last night. Transfused additional PRBCs overnight with appropriate response. Exam Vital signs and Labs for Last 24 Hours: Temp Pulse Resp BP Pulse Ox 98.5 F 67 16 120/57 L 97 07/30/19 07:32 07/30/19 07:32 07/30/19 07:32 07/30/19 07:32 07/30/19 07:32 Laboratory Results - last 24 hr 07/26/19 21:50: Crossmatch (AHG) See Detail 07/29/19 13:15: Hgb 8.1 L, Hct 23.5 L* 07/29/19 18:10: Blood Type O Positive, Antibody Screen Negative, Crossmatch (AHG) See Detail 07/29/19 20:48: Hgb 7.2 L*, Hct 21.7 L* 07/30/19 05:21: Hgb 9.7 L D, Hct 29.5 L I & O for Last 24 hours: Intake & Output 07/27/19 07/28/19 07/29/19 07/30/19 11:59 11:59 11:59 11:59 Intake Total 3578 / 3578 1477 / 1477 3344 / 3344 611.89 / 611.89 Output Total 200 / 200 525 / 525 1750 / 1750 Balance 3578 / 3578 1277 / 1277 2819 / 2819 -1138.11 / -1138.11 Weight 149 lb 7.574 oz 147 lb 8 oz 152 lb 12.485 oz - Constitutional no acute distress Progress Note: A&P (1) Upper gastrointestinal bleed Status: Acute Assessment and plan: Attempts at transfer reportedly unsuccessful. Asked by primary service to attempt repeat EGD due to need for additional transfusion. Current Visit: Yes (2) Anemia associated with acute blood loss Status: Acute Current Visit: Yes (3) Hypotension Status: Acute Current Visit: Yes (4) Hypovolemia due to hemorrhage Status: Acute Current Visit: Yes (5) Peptic ulcer disease with hemorrhage Status: Acute Current Visit: Yes (6) Asthma Status: Acute Current Visit: Yes (7) GERD (gastroesophageal reflux disease) Status: Acute Current Visit: Yes (8) Hiatal hernia Status: Acute Current Visit: Yes (9) History of TIA (transient ischemic attack) Status: Acute Current Visit: Yes (10) Elevated troponin Status: Acute Current Visit: Yes (11) Renal insufficiency Status: Acute Current Visit: Yes
--- NOTE | 2019-07-30 09:31 | Procedure Note ---
- Procedure: Date: 07/30/19 Procedure Performed:: Esophagogastroduodenoscopy with control of potential bleeding source by epinephrine injection and Endo Clip placement Indications:: Patient is a 73-year-old female who had presented with findings of upper GI bleeding. She underwent upper endoscopy which revealed large amount of blood clot which precluded identification of obvious source. Patient continued to require transfusion and arrangements were made for attempt at repeat upper endoscopy for diagnostic and potentially therapeutic purposes. Performing Provider:: Juan North MD Referring Provider:: Andrzej Rdz MD Sedation:: Propofol Procedure:: Patient was taken to endoscopy procedure room. She was positioned in semilateral decubitus position. Adequate intravenous sedation was achieved with anesthesia titration of propofol. Olympus endoscope was inserted via the oropharynx and advanced to the esophagus. She had evidence of nonbleeding distal erosive esophagitis. Gastric lumen was entered. There was an appreciable amount of bloody liquid with some clot present. Thorough irrigation was performed with suctioning. Several times the endoscope was withdrawn while applying suction with retrieval of blood clots. Remainder of bloody liquid was able to be suctioned free with fair visualization. She did have significantly altered gastric anatomy likely from prior hiatal hernia repair. It appeared as though likely half of her stomach was involved in a large sliding hiatal hernia. Ultimately the endoscope was able to be advanced into the antrum of the stomach and the pylorus was identified. Endoscope was able to be advanced through the pylorus and into the distal duodenum which appeared unremarkable. Thorough evaluation of the gastric lumen was then performed. She had a couple of small punctate ulcerations in the mid body of the gastric lumen likely secondary to her hiatal hernia. There was no evidence of any visible vessel or active bleeding. Epinephrine was injected submucosally around this area due to this being the potential source. Endo Clip was applied as well. The gastric mucosal lining was rather friable and bled easily with minimal manipulation such as with suctioning. Several areas which began oozing merely from suctioning was injected with submucosal epinephrine for hemostasis as well. The endoscope was then withdrawn. Findings:: Distorted gastric anatomy from probable recurrent hiatal hernia Blood clots and bloody liquid in the proximal gastric lumen 1 or 2 small ulcerations in the mid body of the stomach injected with epinephrine and Hemoclip placed Distal erosive esophagitis, nonbleeding Recommendations:: Continue close monitoring and observation with serial hemoglobin and hematocrit to assess for stability Complications:: None immediately apparent Estimated blood obtained (mL): 10
--- NOTE | 2019-07-30 10:08 | Progress Note ---
Internal Medicine - PN: Subj *Date: 07/30/19 *Time: 11:37 Interval history: Attempts were made to tranfer to yesterday but no beds available. She required an additional 2 units of blood last night. Seen by Dr. North this morning and she has just returned to the floor from repeat EGD. (See Dr. North's note for details) While in recovery, she developed tachycardia to 140 but by the time she returned to the floor, her HR is in the 80's. She did have submucosal epinephrine during the EGD procedure; question if this was the cause of her brief episode of tachycardia. Her EKG shows no acute changes. Otherwise, she does complain of pain below her left scapula. Exam Vital signs and Labs for Last 24 Hours: Temp Pulse Resp BP Pulse Ox 98.5 F 67 16 120/57 L 97 07/30/19 07:32 07/30/19 07:32 07/30/19 07:32 07/30/19 07:32 07/30/19 07:32 Laboratory Results - last 24 hr 07/26/19 21:50: Crossmatch (AHG) See Detail 07/29/19 13:15: Hgb 8.1 L, Hct 23.5 L* 07/29/19 18:10: Blood Type O Positive, Antibody Screen Negative, Crossmatch (AHG) See Detail 07/29/19 20:48: Hgb 7.2 L*, Hct 21.7 L* 07/30/19 05:21: Hgb 9.7 L D, Hct 29.5 L I & O for Last 24 hours: Intake & Output 07/27/19 07/28/19 07/29/19 07/30/19 11:59 11:59 11:59 11:59 Intake Total 3578 / 3578 1477 / 1477 3344 / 3344 611.89 / 611.89 Output Total 200 / 200 525 / 525 1750 / 1750 Balance 3578 / 3578 1277 / 1277 2819 / 2819 -1138.11 / -1138.11 Weight 149 lb 7.574 oz 147 lb 8 oz 152 lb 12.485 oz - Constitutional no acute distress Comments: drowsy after EGD but answers questions appropriately - *Routine Respiratory Exam Present: CTA bilaterally - *Routine Cardiovascular Exam Present: RRR. Absent: murmur - *Routine Abdominal Exam Present: soft. Absent: tenderness, distended - *Routine Extremities Exam Absent: edema Assessment and Plan (1) Upper gastrointestinal bleed Current visit: Yes Status: Acute Category: Medical Code(s): K92.2 - [place] rointestinal hemorrhage, unspecified (2) Anemia associated with acute blood loss Current visit: Yes Status: Acute Category: Medical Code(s): D62 - Acute posthemorrhagic anemia (3) Hypotension Current visit: Yes Status: Acute Category: Medical Code(s): I95.9 - Hypotension, unspecified (4) Hypovolemia due to hemorrhage Current visit: Yes Status: Acute Category: Medical Code(s): E86.1 - Hypovolemia; R58 - Hemorrhage, not elsewhere classified (5) Peptic ulcer disease with hemorrhage Current visit: Yes Status: Acute Category: Medical Code(s): K27.4 - Chronic or unspecified peptic ulcer, site unspecified, with hemorrhage (6) Asthma Current visit: Yes Status: Acute Category: Medical Code(s): J45.909 - Unspecified asthma, uncomplicated (7) GERD (gastroesophageal reflux disease) Current visit: Yes Status: Acute Category: Medical Code(s): K21.9 - Gastro-esophageal reflux disease without esophagitis (8) Hiatal hernia Current visit: Yes Status: Acute Category: Medical Code(s): K44.9 - Diaphragmatic hernia without obstruction or gangrene (9) History of TIA (transient ischemic attack) Current visit: Yes Status: Acute Category: Medical Code(s): Z86.73 - Personal history of transient ischemic attack (TIA), and cerebral infarction without residual deficits (10) Elevated troponin Current visit: Yes Status: Acute Category: Medical Code(s): R79.89 - Other specified abnormal findings of blood chemistry (11) Renal insufficiency Current visit: Yes Status: Acute Category: Medical Code(s): N28.9 - Disorder of kidney and ureter, unspecified (12) Hypoalbuminemia Current visit: Yes Status: Acute Category: Medical Code(s): E88.09 - Other disorders of plasma-protein metabolism, not elsewhere classified - Assessment and plan all Dx Assessment and Plan for all problems:: Hopefully EGD this AM is successful at stopping her bleeding. Will continue to monitor her H&H closely. The brief episode of tachycardia has resolved. SHe had no associated chest pain but has complained of pain below her left scapula. Will plan to check cardiac enzymes but now having great difficulty obtaining blood. Will place either a PICC line or deep line for vascular access. Note that her measured calcium is low but when corrected for her hypoalbuminemia, is in a satisfactory range. Will monitor.
[2019-07-30 13:04] LABS: Basophils % 0.2 % (0.1-2.0); Eosinophils # 0.1 K/mm3 (0.0-0.4); Eosinophils % 0.6 % (0.1-12.0); Hemoglobin 9.1 g/dL (12.2-16.2); Lymphocytes # 0.9 K/mm3 (0.7-4.5); Lymphocytes % 9.5 % (10-50); Mean Platelet Volume 9.1 fl (7.4-10.4); Monocytes # 0.8 K/mm3 (0.1-1.0); Neutrophils % 81.6 % (37.0-80.0); Platelet Count 114 K/mm3 (142-424); Red Blood Count 3.24 M/mm3 (4.20-5.40); Red Cell Distribution Width 17.2 % (11.5-17.5); White Blood Count 9.9 K/mm3 (4.8-10.8)
[2019-07-30 13:14] LABS: Hematocrit 27.5 % (37.0-47.0)
[2019-07-30 17:13] LABS: Hematocrit 25.3 % (37.0-47.0); Hemoglobin 8.3 g/dL (12.2-16.2)
[2019-07-30 22:02] LABS: Hematocrit 25.3 % (37.0-47.0); Hemoglobin 8.3 g/dL (12.2-16.2)
[2019-07-31 06:28] LABS: Hematocrit 21.9 % (37.0-47.0); Hemoglobin 7.2 g/dL (12.2-16.2)
[2019-07-31 07:02] LABS: Anion Gap 9.2 mEq/L (5-15)
[2019-07-31 07:03] LABS: Calcium 6.4 mg/dL (8.5-10.1)
--- NOTE | 2019-07-31 07:21 | Progress Note ---
Subjective Patient reports: feels better Exam Vital signs and Labs for Last 24 Hours: Temp Pulse Resp BP Pulse Ox 98.4 F 72 18 109/59 L 95 07/31/19 07:00 07/31/19 07:00 07/31/19 07:00 07/31/19 07:00 07/31/19 07:00 Laboratory Results - last 24 hr 07/29/19 18:10: Blood Type O Positive, Antibody Screen Negative, Crossmatch (AHG) See Detail 07/30/19 12:55: WBC 9.9, RBC 3.24 L, Hgb 9.1 L, Hct 27.5 L, MCV 85.0, MCH 28.1, MCHC 33.0, RDW 17.2, Plt Count 114 L D, MPV 9.1, Neut % (Auto) 81.6 H, Lymph % (Auto) 9.5 L, [place] % (Auto) 8.0, Eos % (Auto) 0.6, Baso % (Auto) 0.2, Neut # (Auto) 8.0 H, Lymph # (Auto) 0.9, [place] # (Auto) 0.8, Eos # (Auto) 0.1, Baso # ( Auto) 0.0 07/30/19 12:55: Total Creatine Kinase 93, CK-MB (CK-2) 1.9, CK-MB (CK-2) Rel Index 2.0, Troponin I 0.08 H 07/30/19 17:03: Hgb 8.3 L, Hct 25.3 L 07/30/19 21:58: Hgb 8.3 L, Hct 25.3 L 07/31/19 06:12: Sodium 142, Potassium 3.2 L, Chloride 113 H, Carbon Dioxide 23, Anion Gap 9.2, BUN 18 D, Creatinine 0.47 L, Estimated Creat Clear 54, Estimated GFR 129, Est GFR ( Amer) 156, Glucose 99, Calcium 6.4 L 07/31/19 06:12: Hgb 7.2 L*, Hct 21.9 L* I & O for Last 24 hours: Intake & Output 07/28/19 07/29/19 07/30/19 07/31/19 11:59 11:59 11:59 11:59 Intake Total 1477 / 1477 3344 / 3344 611.89 / 611.89 2461 / 2461 Output Total 200 / 200 525 / 525 1750 / 1750 1400 / 1400 Balance 1277 / 1277 2819 / 2819 -1138.11 / -1138.11 1061 / 1061 Weight 147 lb 8 oz 152 lb 12.485 oz 155 lb 6.814 oz - Constitutional no acute distress - *Routine Respiratory Exam Absent: respiratory distress - *Routine Cardiovascular Exam Present: RRR Progress Note: A&P (1) Upper gastrointestinal bleed Status: Acute Assessment and plan: Hemoglobin this morning down to 7.2. She states that she "feels better". She has undergone EGD on 3 separate occasions over the last 4 days. Her most recent EGD (Dr. North) was successful in that the large volume of clot had somewhat dissipated/lysed and the remaining clotted material was able to be evacuated. Improved visualization did reveal some punctate areas that were treated endoscopically, as well as, patchy friable mucosa. Despite treatment she has continued to show a decline in hemoglobin. Transfuse as needed Still consider transfer to higher level of care I would not recommend repeat EGD this morning; however, repeated endoscopic evaluation tomorrow by Dr. Adriel Tracy should be considered if she has not shown significant improvement and is still at this facility. Current Visit: Yes (2) Anemia associated with acute blood loss Status: Acute Current Visit: Yes (3) Hypotension Status: Acute Current Visit: Yes (4) Hypovolemia due to hemorrhage Status: Acute Current Visit: Yes (5) Peptic ulcer disease with hemorrhage Status: Acute Current Visit: Yes (6) Asthma Status: Acute Current Visit: Yes (7) GERD (gastroesophageal reflux disease) Status: Acute Current Visit: Yes (8) Hiatal hernia Status: Acute Current Visit: Yes (9) History of TIA (transient ischemic attack) Status: Acute Current Visit: Yes (10) Elevated troponin Status: Acute Current Visit: Yes (11) Renal insufficiency Status: Acute Current Visit: Yes (12) Hypoalbuminemia Status: Acute Current Visit: Yes
--- NOTE | 2019-07-31 08:19 | Progress Note ---
<Vaishali Reis - Last Filed: 07/31/19 08:16> Internal Medicine - PN: Subj *Date: 07/31/19 *Time: 08:16 Interval history: Patient does states she feels a little better today. She was able to eat some Jell-O. She denies any nausea, vomiting, or abdominal pain. According to her family, she did have a small bowel movement last night. She states she slept fairly well. Her H&H has decreased again today. Exam Vital signs and Labs for Last 24 Hours: Temp Pulse Resp BP Pulse Ox 98.0 F 72 18 117/58 L 97 07/31/19 07:30 07/31/19 07:30 07/31/19 07:30 07/31/19 07:30 07/31/19 07:30 Laboratory Results - last 24 hr 07/29/19 18:10: Blood Type O Positive, Antibody Screen Negative, Crossmatch (AHG) See Detail 07/30/19 12:55: WBC 9.9, RBC 3.24 L, Hgb 9.1 L, Hct 27.5 L, MCV 85.0, MCH 28.1, MCHC 33.0, RDW 17.2, Plt Count 114 L D, MPV 9.1, Neut % (Auto) 81.6 H, Lymph % (Auto) 9.5 L, [place] % (Auto) 8.0, Eos % (Auto) 0.6, Baso % (Auto) 0.2, Neut # (Auto) 8.0 H, Lymph # (Auto) 0.9, Flagler # (Auto) 0.8, Eos # (Auto) 0.1, Baso # (Auto) 0.0 07/30/19 12:55: Total Creatine Kinase 93, CK-MB (CK-2) 1.9, CK-MB (CK-2) Rel Index 2.0, Troponin I 0.08 H 07/30/19 17:03: Hgb 8.3 L, Hct 25.3 L 07/30/19 21:58: Hgb 8.3 L, Hct 25.3 L 07/31/19 06:12: Sodium 142, Potassium 3.2 L, Chloride 113 H, Carbon Dioxide 23, Anion Gap 9.2, BUN 18 D, Creatinine 0.47 L, Estimated Creat Clear 54, Estimated GFR 129, Est GFR ( Amer) 156, Glucose 99, Calcium 6.4 L 07/31/19 06:12: Hgb 7.2 L*, Hct 21.9 L* I & O for Last 24 hours: Intake & Output 07/28/19 07/29/19 07/30/19 07/31/19 11:59 11:59 11:59 11:59 Intake Total 1477 / 1477 3344 / 3344 611.89 / 611.89 2461 / 2461 Output Total 200 / 200 525 / 525 1750 / 1750 1400 / 1400 Balance 1277 / 1277 2819 / 2819 -1138.11 / -1138.11 1061 / 1061 Weight 147 lb 8 oz 152 lb 12.485 oz 155 lb 6.814 oz - Constitutional no acute distress - *Routine Respiratory Exam Present: CTA bilaterally - *Routine Cardiovascular Exam Present: RRR - *Routine Abdominal Exam Present: soft, normoactive bowel sounds. Absent: tenderness - *Routine Extremities Exam Absent: cyanosis, clubbing, edema - *Routine Skin Exam Present: pallor Assessment and Plan (1) Upper gastrointestinal bleed Current visit: Yes Status: Acute Category: Medical Code(s): K92.2 - Gastrointestinal hemorrhage, unspecified (2) Anemia associated with acute blood loss Current visit: Yes Status: Acute Category: Medical Code(s): D62 - Acute posthemorrhagic anemia (3) Hypotension Current visit: Yes Status: Acute Category: Medical Code(s): I95.9 - Hypotension, unspecified (4) Hypovolemia due to hemorrhage Current visit: Yes Status: Acute Category: Medical Code(s): E86.1 - Hypovolemia; R58 - Hemorrhage, not elsewhere classified (5) Peptic ulcer disease with hemorrhage Current visit: Yes Status: Acute Category: Medical Code(s): K27.4 - Chronic or unspecified peptic ulcer, site unspecified, with hemorrhage (6) Asthma Current visit: Yes Status: Acute Category: Medical Code(s): J45.909 - Unspecified asthma, uncomplicated (7) GERD (gastroesophageal reflux disease) Current visit: Yes Status: Acute Category: Medical Code(s): K21.9 - Gastro-esophageal reflux disease without esophagitis (8) Hiatal hernia Current visit: Yes Status: Acute Category: Medical Code(s): K44.9 - Diaphragmatic hernia without obstruction or gangrene (9) History of TIA (transient ischemic attack) Current visit: Yes Status: Acute Category: Medical Code(s): Z86.73 - Personal history of transient ischemic attack (TIA), and cerebral infarction without residual deficits (10) Elevated troponin Current visit: Yes Status: Acute Category: Medical Code(s): R79.89 - Other specified abnormal findings of blood chemistry (11) Renal insufficiency Current visit: Yes Status: Acute Category: Medical Code(s): N28.9 - Disorder of kidney and ureter, unspecified (12) Hypoalbuminemia Current visit: Yes Status: Acute Category: Medical Code(s): E88.09 - Other disorders of plasma-protein metabolism, not elsewhere classified (13) Hypokalemia Current visit: Yes Status: Acute Category: Medical Code(s): E87.6 - Hypokalemia - Assessment and plan all Dx Assessment and Plan for all problems:: Dr. Penny saw the patient this morning and did not recommend a repeat EGD. He did feel a repeat endoscopic evaluation tomorrow by or Demarcus should be considered, or the patient may need to be transferred to a higher level of care. He did recommend transfusion of blood as needed. Will start on potassium supplementation for hypokalemia. Will discuss further care with Dr. Molina. <Kane Molina - Last Filed: 07/31/19 18:25> Internal Medicine - PN: Subj *Date: 07/31/19 *Time: 18:25 Exam Vital signs and Labs for Last 24 Hours: Temp Pulse Resp BP Pulse Ox 98.1 F 79 16 128/67 98 07/31/19 08:15 07/31/19 08:15 07/31/19 08:15 07/31/19 08:15 07/31/19 08:29 Laboratory Results - last 24 hr 07/29/19 18:10: Blood Type O Positive, Antibody Screen Negative, Crossmatch (AHG) See Detail 07/30/19 12:55: WBC 9.9, RBC 3.24 L, Hgb 9.1 L, Hct 27.5 L, MCV 85.0, MCH 28.1, MCHC 33.0, RDW 17.2, Plt Count 114 L D, MPV 9.1, Neut % (Auto) 81.6 H, Lymph % (Auto) 9.5 L, [place] % (Auto) 8.0, Eos % (Auto) 0.6, Baso % (Auto) 0.2, Neut # (Auto) 8.0 H, Lymph # (Auto) 0.9, [place] # (Auto) 0.8, Eos # (Auto) 0.1, Baso # (Auto) 0.0 07/30/19 12:55: Total Creatine Kinase 93, CK-MB (CK-2) 1.9, CK-MB (CK-2) Rel Index 2.0, Troponin I 0.08 H 07/30/19 17:03: Hgb 8.3 L, Hct 25.3 L 07/30/19 21:58: Hgb 8.3 L, Hct 25.3 L 07/31/19 06:12: Sodium 142, Potassium 3.2 L, Chloride 113 H, Carbon Dioxide 23, Anion Gap 9.2, BUN 18 D, Creatinine 0.47 L, Estimated Creat Clear 54, Estimated GFR 129, Est GFR ( Amer) 156, Glucose 99, Calcium 6.4 L 07/31/19 06:12: Hgb 7.2 L*, Hct 21.9 L* I & O for Last 24 hours: Intake & Output 07/28/19 07/29/19 07/30/19 07/31/19 11:59 11:59 11:59 11:59 Intake Total 1477 / 1477 3344 / 3344 611.89 / 611.89 2461 / 2461 Output Total 200 / 200 525 / 525 1750 / 1750 1400 / 1400 Balance 1277 / 1277 2819 / 2819 -1138.11 / -1138.11 1061 / 1061 Weight 147 lb 8 oz 152 lb 12.485 oz 155 lb 6.814 oz Assessment and Plan (1) Upper gastrointestinal bleed Current visit: Yes Status: Acute Category: Medical Code(s): K92.2 - Gastrointestinal hemorrhage, unspecified (2) Anemia associated with acute blood loss Current visit: Yes Status: Acute Category: Medical Code(s): D62 - Acute posthemorrhagic anemia (3) Hypotension Current visit: Yes Status: Acute Category: Medical Code(s): I95.9 - Hypotension, unspecified (4) Hypovolemia due to hemorrhage Current visit: Yes Status: Acute Category: Medical Code(s): E86.1 - Hypovolemia; R58 - Hemorrhage, not elsewhere classified (5) Peptic ulcer disease with hemorrhage Current visit: Yes Status: Acute Category: Medical Code(s): K27.4 - Chronic or unspecified peptic ulcer, site unspecified, with hemorrhage (6) Asthma Current visit: Yes Status: Acute Category: Medical Code(s): J45.909 - Unspecified asthma, uncomplicated (7) GERD (gastroesophageal reflux disease) Current visit: Yes Status: Acute Category: Medical Code(s): K21.9 - Gastro-esophageal reflux disease without esophagitis (8) Hiatal hernia Current visit: Yes Status: Acute Category: Medical Code(s): K44.9 - Diaphragmatic hernia without obstruction or gangrene (9) History of TIA (transient ischemic attack) Current visit: Yes Status: Acute Category: Medical Code(s): Z86.73 - Personal history of transient ischemic attack (TIA), and cerebral infarction without residual deficits (10) Elevated troponin Current visit: Yes Status: Acute Category: Medical Code(s): R79.89 - Other specified abnormal findings of blood chemistry (11) Renal insufficiency Current visit: Yes Status: Acute Category: Medical Code(s): N28.9 - Disorder of kidney and ureter, unspecified (12) Hypoalbuminemia Current visit: Yes Status: Acute Category: Medical Code(s): E88.09 - Other disorders of plasma-protein metabolism, not elsewhere classified (13) Hypokalemia Current visit: Yes Status: Acute Category: Medical Code(s): E87.6 - Hypokalemia - Assessment and plan all Dx Assessment and Plan for all problems:: Patient seen and examined. SHe rested well. Had BM last night described as dark liquid. No nuasea or abdominal pain. Feels hungry. H&H down again. Transfusion started. Dr. Penny's consult noted, however Dr. Tracy is not available this week. still has patient on waiting list for transfer. She is stable at present.
--- NOTE | 2019-07-31 11:21 | Electrocardiograph Report ---
APPROVED REPORT Exam: Resting ECG HR:100 bpm ECG Measurements Heart Rate 100 AXES TN 168 P 54 QRSd 68 QRS -10 QT 338 T131 QTc 436 <Conclusion> Sinus rhythm with fusion complexes Low voltage QRS Old poor r wave progression T wave abnormality, consider anterolateral ischemia Abnormal ECG Electronically signed by : Nik Deluca, 07/30/2019 09:46:22
[2019-07-31 13:31] LABS: Hematocrit 30.7 % (37.0-47.0)
[2019-07-31 13:33] LABS: Hemoglobin 10.3 g/dL (12.2-16.2)
--- NOTE | 2019-08-04 14:32 | Discharge Summary ---
General - General Admission date:: 07/27/19 Discharge date: 07/31/19 HPI HPI: 73 year old female with a history of GERD and a very remote history of a peptic ulcer was brought to [facility] ER after being found in the floor of her home covered in bloody and dark black stool. Patient stated she felt in her normal state of health until the am before admission. Upon awakening, she began to have vomiting and diarrhea and felt like she had a intestinal virus infection. She restricted her oral intake and rested during the day but in the evening she started passing dark black stool. She felt weak and sat down in the floor. She stated she had no injury but was so weak she could not stand up. Her family came to check on her and found her lying in the floor. She has a large hiatal hernia and takes Reglan for treatment, it is unclear if she is taking Prevacid or not. H/H drawn in the office January 2019 was 13.3/40. Hospital Course Hospital Course: The patient had an initial chest x-ray in the ER showing a stable large hiatal hernia but a new finding of diffuse opacity of the left lower hemithorax. The patient was admitted and surgery was consulted. Her H&H was 7.7 and 26. Packed red blood cells were ordered. Dr. Penny saw the patient and performed an EGD. She had a large amount of blood in her stomach along with a complex lobulated mucosal form distal to the esophagus, a large complex hiatal hernia, significant gastric tortuosity secondary to herniation, and apparent ulceration with no signs of active bleeding in the mid gastric body. Dr. Penny recommended to continue her PPI and Carafate. He felt she would need a short-term repeat EGD for improved visualization as well as serial hemoglobin and hematocrits. The patient was started on a clear liquid diet. Her H&H continued to drop and she had to be continually transfused with packed red blood cells. Dr. Penny felt she may need transfer to a tertiary center. The patient had another EGD on 07/28/2019 and there was no sign of active bleeding. There was still a large volume of old blood clot within the gastric lumen and gastric ulceration was once again noted. She responded well to blood transfusions but continued to have blood loss. Dr. Penny recommended transfer. Dr. Rdz called about an available bed. It was felt the patient would need evacuation of gastric blood clots along with continued transfusion. A bed was n ot readily available and the patient was placed on a wait list. She was seen by Dr. North in Dr. Penny's absence and, due to a decreased H&H, she was continued on packed red blood cells. Dr. North performed another EGD on 07/30/2019 and found distorted gastric anatomy from a recurrent hiatal hernia, blood clots and bloody liquid in the proximal gastric lumen, and 1 or 2 small ulcerations in the mid body of the stomach which he injected with epinephrine and a Hemoclip was placed. There was also distal erosive esophagitis, but it was not bleeding. While in recovery from the EGD, she developed tachycardia to 140, but by the time she returned to the floor, her heart rate was in the 80s. Dr. Molina thought it may have been the submucosal epinephrine during EGD procedure that caused the brief episode of tachycardia. Her EKG showed no acute changes. A PICC line was placed due to difficulty obtaining a venous blood sample. Her H&H continued to drop even after her third EGD. A bed became available at and the patient was transferred for further evaluation and treatment. Objective Vital signs: Temp Pulse Resp BP Pulse Ox 98.3 F 75 17 106/57 L 96 07/31/19 20:00 07/31/19 20:00 07/31/19 20:00 07/31/19 20:00 07/31/19 20:00 Narrative: - Constitutional no acute distress - *Routine Respiratory Exam Present: CTA bilaterally - *Routine Cardiovascular Exam Present: RRR - *Routine Abdominal Exam Present: soft, normoactive bowel sounds. Absent: tenderness - *Routine Extremities Exam Absent: cyanosis, clubbing, edema - *Routine Skin Exam Present: pallor DS: Diagnosis - Discharge Diagnosis (1) Upper gastrointestinal bleed Status: Acute (2) Anemia associated with acute blood loss Status: Acute (3) Hypotension Status: Acute (4) Hypovolemia due to hemorrhage Status: Acute (5) Peptic ulcer disease with hemorrhage Status: Acute (6) Asthma Status: Acute (7) GERD (gastroesophageal reflux disease) Status: Acute (8) Hiatal hernia Status: Acute (9) History of TIA (transient ischemic attack) Status: Acute (10) Elevated troponin Status: Acute (11) Renal insufficiency Status: Acute (12) Hypoalbuminemia Status: Acute (13) Hypokalemia Status: Acute Discharge Plan - Patient Discharge Instructions ACTIVITY: Limited activity DIET: other (clear liquids) Patient Instructions: Blood Transfusion, Anemia, DI for Blood Transfusion, Peripherally Inserted Central Catheter, DI for Gastrointestinal Bleeding Forms: Transfer Record - Follow up Plan Disposition: Xfer Short-Term Hosp Home Medications: Home Medications Medication Instructions Recorded Confirmed Type Amlodipine Besylate [Norvasc 5mg 5 mg PO DAILY 08/09/17 07/27/19 History tablet] Aspirin/Dipyridamole [Aggrenox 1 each PO BID 08/09/17 07/27/19 History 25mg-200mg Capsule] Calcium Carbonate 600 mg PO BID 08/09/17 07/27/19 History Lansoprazole [Prevacid] 30 mg PO DAILY 08/09/17 07/27/19 History Alendronate Sodium [Fosamax 70mg 70 mg PO WEEKLY 04/17/19 07/27/19 History Tablet] Ferrous Sulfate [Iron] 65 mg PO DAILY 07/27/19 07/27/19 History Fluticasone/Salmeterol [Advair 1 puff IH BID 07/27/19 07/27/19 History 250/50mcg Diskus] Levothyroxine Sodium 75 mcg PO DAILY 07/27/19 07/27/19 History [Levothyroxine 75mcg (0.075mg) Tab] Metoclopramide HCl [Metoclopramide 10 mg PO BID 07/27/19 07/27/19 History 10mg Tablet] Simvastatin 20 mg PO HS 07/27/19 07/27/19 History Prescriptions/Medication Reconciliation: No Action Amlodipine Besylate [Norvasc 5mg tablet] 5 mg PO DAILY Lansoprazole [Prevacid] 30 mg PO DAILY Calcium Carbonate 600 mg PO BID Aspirin/Dipyridamole [Aggrenox 25mg-200mg Capsule] 1 each PO BID Levothyroxine Sodium [Levothyroxine 75mcg (0.075mg) Tab] 75 mcg PO DAILY Metoclopramide HCl [Metoclopramide 10mg Tablet] 10 mg PO BID Alendronate Sodium [Fosamax 70mg Tablet] 70 mg PO WEEKLY Fluticasone/Salmeterol [Advair 250/50mcg Diskus] 1 puff IH BID Simvastatin 20 mg PO HS Ferrous Sulfate [Iron] 65 mg PO DAILY - Problem Reconciliation Problems Reviewed?: Yes
== END 2019-07-31 21:20 | disposition short-term general hospital (02) | DRG 377 ==
LOC: ER 21:25 → 2ND 23:16 → UNDODISIN 07-30 14:52
PROVIDERS: ADMIT Family Medicine; ATTEND Family Medicine
CPT/HCPCS: 36415; 36569; 71010; 71045; 80048; 80053; 81001; 82272; 82550; 82553; 84484; 85007; 85014; 85018; 85025; 85610; 85730; 86850; 88305; 93005; 96365; 96366; 96367; 96372; 96375; 99285; C1751; G0328; J2357; J2704; P9016

== ENCOUNTER 2019-08-21 12:53 | Outpatient (CLI) | payer MEDICARE, SELFPAY ==
[2019-08-21 13:10] VITALS: BP 122/73; PULSE 75; RESP 20; O2SAT 97
== END 2019-08-21 13:25 | disposition home or self-care (01) ==
LOC: INF 12:53
PROVIDERS: PCP Family Medicine; Visit Provider Allergy & Immunology
DX: J45.909 Unspecified asthma, uncomplicated (principal)
CPT/HCPCS: 96372; J2357

== ENCOUNTER 2019-09-03 12:48 | Outpatient (CLI) | payer MEDICARE, SELFPAY ==
[2019-09-03 13:16] VITALS: BP 142/71; PULSE 61; RESP 18; TEMP 37.1; O2SAT 97
== END 2019-09-03 13:24 | disposition home or self-care (01) ==
LOC: INF 12:48
PROVIDERS: Visit Provider Nurse Practitioner
DX: J45.909 Unspecified asthma, uncomplicated (principal)
CPT/HCPCS: 96372; J2357

== ENCOUNTER 2019-09-19 10:10 | Outpatient (CLI) | payer MEDICARE, SELFPAY ==
[2019-09-19 10:29] VITALS: BP 175/71; PULSE 71; RESP 18; TEMP 36.4; O2SAT 97
== END 2019-09-19 10:45 | disposition home or self-care (01) ==
LOC: INF 10:10
PROVIDERS: Visit Provider Allergy & Immunology
DX: J45.909 Unspecified asthma, uncomplicated (principal)
CPT/HCPCS: 96372; J2357

== ENCOUNTER 2019-10-01 09:55 | Outpatient (CLI) | payer MEDICARE, SELFPAY ==
[2019-10-01 10:20] VITALS: BP 133/62; PULSE 57; RESP 18; O2SAT 96
== END 2019-10-01 10:35 | disposition home or self-care (01) ==
LOC: INF 09:58
PROVIDERS: Visit Provider Allergy & Immunology
DX: J45.909 Unspecified asthma, uncomplicated (principal)
CPT/HCPCS: 96372; J2357

== ENCOUNTER 2019-10-01 11:00 | Outpatient (RCR) | payer MEDICARE, SELFPAY | END 2019-10-01 11:57 | disposition home or self-care (01) | LOC: PT 11:00 | PROVIDERS: PCP Family Medicine; Visit Provider Internal Medicine | DX: R53.1 Weakness (principal); R42 Dizziness and giddiness | CPT/HCPCS: 97110; 97112; 97163; 97164 ==

== ENCOUNTER 2019-10-17 12:00 | Outpatient (CLI) | payer MEDICARE, SELFPAY ==
[2019-10-17 11:58] VITALS: BP 122/79; PULSE 69; RESP 18; TEMP 36.9; O2SAT 98
== END 2019-10-17 12:10 | disposition home or self-care (01) ==
LOC: INF 12:00
PROVIDERS: PCP Family Medicine; Visit Provider Allergy & Immunology
DX: J45.909 Unspecified asthma, uncomplicated (principal)
CPT/HCPCS: 96372; J2357

== ENCOUNTER 2019-10-29 09:49 | Outpatient (CLI) | payer MEDICARE, SELFPAY ==
[2019-10-29 10:05] VITALS: BP 128/60; PULSE 58; RESP 18; TEMP 36.7; O2SAT 96
== END 2019-10-29 10:20 | disposition home or self-care (01) ==
LOC: INF 09:49
PROVIDERS: Visit Provider Nurse Practitioner
DX: J45.909 Unspecified asthma, uncomplicated (principal)
CPT/HCPCS: 96372; J2357

== ENCOUNTER 2019-11-12 09:31 | Outpatient (CLI) | payer MEDICARE, SELFPAY ==
[2019-11-12 09:53] VITALS: BP 143/69; PULSE 65; RESP 20; TEMP 36.8; O2SAT 95
== END 2019-11-12 09:53 | disposition home or self-care (01) ==
LOC: INF 09:31
PROVIDERS: Visit Provider Nurse Practitioner
DX: J45.909 Unspecified asthma, uncomplicated (principal)
CPT/HCPCS: 96372; J2357

== ENCOUNTER 2019-11-26 10:10 | Outpatient (CLI) | payer MEDICARE, SELFPAY ==
[2019-11-26 10:35] VITALS: BP 136/76; PULSE 61; RESP 18; TEMP 36.8; O2SAT 96
== END 2019-11-26 10:50 | disposition home or self-care (01) ==
LOC: INF 10:18
PROVIDERS: Visit Provider Allergy & Immunology
DX: J45.909 Unspecified asthma, uncomplicated (principal)
CPT/HCPCS: 96372; J2357

== ENCOUNTER 2019-12-10 10:16 | Outpatient (CLI) | payer MEDICARE, SELFPAY ==
[2019-12-10 10:30] VITALS: BP 126/61; PULSE 61; RESP 18; TEMP 36.9; O2SAT 97
== END 2019-12-10 10:50 | disposition home or self-care (01) ==
LOC: INF 10:16
PROVIDERS: Visit Provider Allergy & Immunology
DX: J45.909 Unspecified asthma, uncomplicated (principal)
CPT/HCPCS: 96372; J2357

== ENCOUNTER 2019-12-24 08:48 | Outpatient (CLI) | payer MEDICARE, SELFPAY ==
[2019-12-24 09:03] VITALS: BP 138/62; PULSE 62; RESP 18; TEMP 36.9; O2SAT 98
== END 2019-12-24 09:30 | disposition home or self-care (01) ==
LOC: INF 08:48
PROVIDERS: Visit Provider Allergy & Immunology
DX: J45.909 Unspecified asthma, uncomplicated (principal)
CPT/HCPCS: 96372; J2357

== ENCOUNTER 2020-01-07 11:00 | Outpatient (CLI) | payer MEDICARE, SELFPAY ==
[2020-01-07 11:20] VITALS: BP 130/70; PULSE 63; RESP 18; TEMP 36.9
== END 2020-01-07 11:35 | disposition home or self-care (01) ==
LOC: INF 11:00
PROVIDERS: Visit Provider Allergy & Immunology
DX: J45.909 Unspecified asthma, uncomplicated (principal)
CPT/HCPCS: 96372; J2357

== ENCOUNTER 2020-01-21 10:01 | Outpatient (CLI) | payer MEDICARE, SELFPAY ==
[2020-01-21 10:13] VITALS: BP 140/66; PULSE 52; RESP 18; TEMP 36.7; O2SAT 98
== END 2020-01-21 10:24 | disposition home or self-care (01) ==
LOC: INF 10:01
PROVIDERS: Visit Provider Nurse Practitioner
DX: J45.909 Unspecified asthma, uncomplicated (principal)
CPT/HCPCS: 96372; J2357

== ENCOUNTER 2020-02-04 10:03 | Outpatient (CLI) | payer MEDICARE, SELFPAY ==
[2020-02-04 10:16] VITALS: BP 136/63; PULSE 58; RESP 18; TEMP 36.9; O2SAT 95
== END 2020-02-04 10:30 | disposition home or self-care (01) ==
LOC: INF 10:03
PROVIDERS: Visit Provider Allergy & Immunology
DX: J45.909 Unspecified asthma, uncomplicated (principal)
CPT/HCPCS: 96372; J2357

== ENCOUNTER 2020-02-18 10:10 | Outpatient (CLI) | payer MEDICARE, SELFPAY ==
[2020-02-18 10:30] VITALS: BP 148/65; PULSE 57; RESP 18; TEMP 37.1; O2SAT 94
== END 2020-02-18 10:45 | disposition home or self-care (01) ==
LOC: INF 10:18
PROVIDERS: Visit Provider Allergy & Immunology
DX: J45.909 Unspecified asthma, uncomplicated (principal)
CPT/HCPCS: 96372; J2357

== ENCOUNTER 2020-03-03 10:00 | Outpatient (CLI) | payer MEDICARE, SELFPAY ==
[2020-03-03 10:25] VITALS: BP 143/75; PULSE 54; RESP 18; TEMP 36.6; O2SAT 96
== END 2020-03-03 10:40 | disposition home or self-care (01) ==
LOC: INF 10:04
PROVIDERS: Visit Provider Nurse Practitioner
DX: J45.909 Unspecified asthma, uncomplicated (principal)
CPT/HCPCS: 96372; J2357

== ENCOUNTER 2020-03-17 10:01 | Outpatient (CLI) | payer MEDICARE, SELFPAY ==
[2020-03-17 10:12] VITALS: BP 145/68; PULSE 59; RESP 18; TEMP 36.8; O2SAT 94
== END 2020-03-17 10:33 | disposition home or self-care (01) ==
LOC: INF 10:01
PROVIDERS: Visit Provider Allergy & Immunology
DX: J45.909 Unspecified asthma, uncomplicated (principal)
CPT/HCPCS: 96372; J2357

== ENCOUNTER 2020-03-31 10:13 | Outpatient (CLI) | payer MEDICARE, SELFPAY ==
[2020-03-31 10:37] VITALS: BP 136/66; PULSE 52; RESP 18; TEMP 36.6; O2SAT 98
== END 2020-03-31 10:47 | disposition home or self-care (01) ==
LOC: INF 10:13
PROVIDERS: Visit Provider Nurse Practitioner
DX: J45.909 Unspecified asthma, uncomplicated (principal)
CPT/HCPCS: 96372; J2357

== ENCOUNTER 2020-04-14 10:00 | Outpatient (CLI) | payer MEDICARE, SELFPAY ==
[2020-04-14 10:25] VITALS: BP 141/71; PULSE 51; RESP 18; TEMP 36.6; O2SAT 97
== END 2020-04-14 10:50 | disposition home or self-care (01) ==
LOC: INF 10:30
PROVIDERS: Visit Provider Nurse Practitioner
DX: J45.909 Unspecified asthma, uncomplicated (principal)
CPT/HCPCS: 96372; J2357

== ENCOUNTER 2020-04-28 10:05 | Outpatient (CLI) | payer MEDICARE, SELFPAY ==
[2020-04-28 10:35] VITALS: BP 153/74; PULSE 64; RESP 18; O2SAT 95
== END 2020-04-28 10:35 | disposition home or self-care (01) ==
LOC: INF 10:14
PROVIDERS: Visit Provider Allergy & Immunology
DX: J45.909 Unspecified asthma, uncomplicated (principal)
CPT/HCPCS: 96372; J2357

== ENCOUNTER 2020-05-12 10:21 | Outpatient (CLI) | payer MEDICARE, SELFPAY ==
[2020-05-12 11:00] VITALS: BP 139/69; PULSE 56; RESP 18; TEMP 36.4; O2SAT 95
== END 2020-05-12 11:00 | disposition home or self-care (01) ==
LOC: INF 10:21
PROVIDERS: Visit Provider Nurse Practitioner
DX: J45.909 Unspecified asthma, uncomplicated (principal)
CPT/HCPCS: 96372; J2357

== ENCOUNTER 2020-05-26 10:06 | Outpatient (CLI) | payer MEDICARE, SELFPAY ==
[2020-05-26 10:30] VITALS: BP 138/66; PULSE 58; RESP 18; TEMP 36.9; O2SAT 94
== END 2020-05-26 10:45 | disposition home or self-care (01) ==
LOC: INF 10:06
PROVIDERS: Visit Provider Allergy & Immunology
DX: J45.909 Unspecified asthma, uncomplicated (principal)
CPT/HCPCS: 96372; J2357

== ENCOUNTER 2020-06-09 10:16 | Outpatient (CLI) | payer MEDICARE, SELFPAY ==
[2020-06-09 10:35] VITALS: BP 135/71; PULSE 56; RESP 18; O2SAT 95
== END 2020-06-09 10:35 | disposition home or self-care (01) ==
LOC: INF 10:16
PROVIDERS: Visit Provider Allergy & Immunology
DX: J45.909 Unspecified asthma, uncomplicated (principal); Z87.891 Personal history of nicotine dependence
CPT/HCPCS: 96372; J2357

== ENCOUNTER 2020-06-23 10:00 | Outpatient (CLI) | payer MEDICARE, SELFPAY ==
[2020-06-23 10:24] VITALS: BP 135/69; PULSE 62; RESP 18; TEMP 36.8; O2SAT 96
== END 2020-06-23 10:30 | disposition home or self-care (01) ==
LOC: INF 10:00
PROVIDERS: Visit Provider Allergy & Immunology
DX: J45.909 Unspecified asthma, uncomplicated (principal)
CPT/HCPCS: 96372; J2357

== ENCOUNTER 2020-07-07 10:06 | Outpatient (CLI) | payer MEDICARE, SELFPAY ==
[2020-07-07 10:25] VITALS: BP 138/73; PULSE 59; RESP 18; TEMP 36.7; O2SAT 96
== END 2020-07-07 10:40 | disposition home or self-care (01) ==
LOC: INF 10:06
PROVIDERS: Visit Provider Allergy & Immunology
DX: J45.909 Unspecified asthma, uncomplicated (principal)
CPT/HCPCS: 96372; J2357

== ENCOUNTER 2020-07-21 09:50 | Outpatient (CLI) | payer MEDICARE, SELFPAY ==
[2020-07-21 10:25] VITALS: BP 165/70; PULSE 58; RESP 18; TEMP 36.5; O2SAT 95
== END 2020-07-21 10:25 | disposition home or self-care (01) ==
LOC: INF 09:59
PROVIDERS: Visit Provider Allergy & Immunology
DX: J45.909 Unspecified asthma, uncomplicated (principal)
CPT/HCPCS: 96372; J2357

== ENCOUNTER 2020-08-04 10:00 | Outpatient (CLI) | payer MEDICARE, SELFPAY ==
[2020-08-04 10:11] VITALS: BP 139/59; PULSE 57; RESP 18; TEMP 36.7; O2SAT 95
== END 2020-08-04 10:33 | disposition home or self-care (01) ==
LOC: INF 10:01
PROVIDERS: PCP Family Medicine; Visit Provider Allergy & Immunology
DX: J45.909 Unspecified asthma, uncomplicated (principal)
CPT/HCPCS: 96372; J2357

== ENCOUNTER 2020-08-18 10:12 | Outpatient (CLI) | payer MEDICARE, SELFPAY ==
[2020-08-18 10:39] VITALS: BP 156/75; PULSE 61; RESP 18; TEMP 36.9; O2SAT 95
== END 2020-08-18 10:58 | disposition home or self-care (01) ==
LOC: INF 10:12
PROVIDERS: Visit Provider Allergy & Immunology
DX: J45.909 Unspecified asthma, uncomplicated (principal)
CPT/HCPCS: 96372; J2357

== ENCOUNTER 2020-09-01 09:45 | Outpatient (CLI) | payer MEDICARE, SELFPAY ==
[2020-09-01 10:05] VITALS: BP 141/66; PULSE 63; RESP 20; TEMP 36.7
== END 2020-09-01 10:20 | disposition home or self-care (01) ==
LOC: INF 09:55
PROVIDERS: Visit Provider Allergy & Immunology
DX: J45.909 Unspecified asthma, uncomplicated (principal)
CPT/HCPCS: 96372; J2357

== ENCOUNTER 2020-09-22 10:03 | Outpatient (CLI) | payer MEDICARE, SELFPAY ==
[2020-09-22 10:25] VITALS: BP 144/68; PULSE 71; RESP 20; TEMP 37; O2SAT 95
== END 2020-09-22 10:40 | disposition home or self-care (01) ==
LOC: INF 10:03
PROVIDERS: Visit Provider Allergy & Immunology
DX: J45.909 Unspecified asthma, uncomplicated (principal)
CPT/HCPCS: 96372; J2357

== ENCOUNTER 2020-10-06 10:08 | Outpatient (CLI) | payer MEDICARE, SELFPAY ==
[2020-10-06 10:22] VITALS: BP 149/73; PULSE 61; RESP 20; TEMP 36.3; O2SAT 96
== END 2020-10-06 10:40 | disposition home or self-care (01) ==
LOC: INF 10:09
PROVIDERS: Visit Provider Allergy & Immunology
DX: J45.909 Unspecified asthma, uncomplicated (principal)
CPT/HCPCS: 96372; J2357